=== PATIENT | female | born 1955 | race Caucasian/White ===

== ENCOUNTER 2016-08-19 16:33 | Outpatient (CLI) | payer OTHER ==
--- NOTE | 2016-08-21 07:07 | XRAY Report ---
CHEST, PA AND LATERAL: 08/19/2016 CLINICAL HISTORY: Shortness of breath for three months with productive cough. Patient is a smoker. COMPARISON: 06/10/2015 FINDINGS: Anterior spurring is noted in the thoracic spine, especially the [id number] thoracic spine. Normal cardiac size is noted. Thoracic aorta is normal. Mediastinum is not widened. Pulmonary parenchyma appears normal. No change is noted as compared to preceding exam dated 06/10/19 16. IMPRESSION: NORMAL EXAMINATION WITHOUT CHANGE NOTED COMPARED TO 06/10/2015. JOB #: [id number] EXT JOB #:[id number]
== END 2016-08-19 16:34 | disposition home or self-care (01) ==
LOC: DI 16:33
PROVIDERS: ATTEND Physician Assistant
DX: R06.02 Shortness of breath (principal); R05 Cough; R07.9 Chest pain, unspecified; F17.200 Nicotine dependence, unspecified, uncomplicated
CPT/HCPCS: 71020; 93005

== ENCOUNTER 2017-07-11 09:43 | Emergency (ER) | payer OTHER ==
[2017-07-11 09:49] VITALS: BP 181/87
--- NOTE | 2017-07-11 10:41 | XRAY Preliminary Report ---
Exam: XR CHEST 2 VIEW X-RAY IMPRESSION: No convincing acute cardiopulmonary abnormality. [facility] SITE ID: [id number]
--- NOTE | 2017-07-11 10:41 | XRAY Report ---
EXAM: CHEST RADIOGRAPHY EXAM DATE: 07/11/2017 10:18 AM. CLINICAL HISTORY: Shortness of breath, diff breathing. Productive cough. COMPARISON: 08/19/2016. TECHNIQUE: 2 views. FINDINGS: Lungs/Pleura: No focal pulmonary opacity. No significant pleural effusion or evidence of pneumothorax . Nonspecific mild prominence of the pulmonary interstitium. Mediastinum: Heart size is normal. Mildly tortuous aorta. Other: None. IMPRESSION: No convincing acute cardiopulmonary abnormality. [facility] Referring Provider Line: [phone] SITE ID: [id number]
--- NOTE | 2017-07-11 10:41 | ED Physician Documentation ---
PD HPI DYSPNEA - Stated complaint Stated Complaint: SOA - Chief complaint Chief Complaint: Resp - History obtained from History obtained from: Patient - History of Present Illness Timing - onset: How many days ago (several) Timing - onset during: Light activity Timing - duration: Days Timing - details: Gradual onset, Still present Inciting event(s): URI Worsened by: Exertion, Coughing Associated symptoms: Cough, Wheezing. No: Fever, Bilateral edema, Anxiety Similar symptoms before: Diagnosis (asthma) Recently seen: Not recently seen Review of Systems Constitutional: denies: Fever Nose: reports: Congestion. 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: 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 HEENT: Cataracts - Present Medications Home Medications: Ambulatory Orders Medication Instructions Recorded Confirmed Albuterol Sulfate [Proventil Hfa] 2 puffs IH QID PRN 03/03/13 10/12/13 Fluticasone Propionate [Flovent 50 mcg IH DAILY 03/03/13 10/12/13 Diskus] Fluticasone/Salmeterol [Advair 1 puffs IH DAILY 03/03/13 10/12/13 250-50 Diskus] Azithromycin [Zithromax] 250 mg PO DAILY #6 tablet 10/12/13 Prednisone 10 mg PO DAILY #26 tablet 10/12/13 Benzonatate [Tessalon] 100 mg PO TID PRN #25 capsule 07/11/17 Dexamethasone [Decadron] 4 mg PO DAILY #5 tablet 07/11/17 Doxycycline Monohydrate 100 mg PO BID #14 tablet 07/11/17 HYDROcod/ACETAM 5/325 [[place] 5/325] 1 tab PO Q6H PRN #15 tablet 07/11/17 - Allergies Allergies/Adverse Reactions: Allergies Allergy/AdvReac Type Severity Reaction Status Date / Time codeine Allergy Intermediate Itching Verified 10/12/13 09:01 - Social History Does the pt smoke?: Yes Smoking Status: Unknown if ever smoked Does the pt drink ETOH?: Yes Does the pt have substance abuse?: No - POLST Patient has POLST: No PD ED PE NORMAL - Vitals Vital signs reviewed: Yes - General General: Alert and oriented X 3, No acute distress, Well developed/nourished - HEENT HEENT: Ears normal, Pharynx benign - Neck Neck: Supple, no meningeal sign, No adenopathy - Cardiac Cardiac: RRR, No murmur - Respiratory Respiratory: No: Clear bilaterally (disffuse modeerate wheezing. No coarse sounds. ) - Abdomen Abdomen: Soft, Non tender - Extremities Extremities: No tenderness to palpate, No edema, No calf tenderness / cord - Neuro Neuro: Alert and oriented X 3, No motor deficit, Normal speech Results - Vitals Vitals: Oxygen O2 Source Room air - Rads (name of study) chest Radiology: Prelim report reviewed, EMP read contemporaneously (no infiltrates) PD MEDICAL DECISION MAKING - ED course Complexity details: reviewed results, re-evaluated patient, considered differential, d/w patient Departure - Departure Disposition: Home, Self Care Clinical Impression: Exacerbation of asthma Qualifiers: Asthma severity: moderate Asthma persistence: persistent Qualified Code(s): J45.41 - Moderate persistent asthma with (acute) exacerbation Acute bronchitis Qualifiers: Bronchitis organism: unspecified organism Qualified Code(s): J20.9 - Acute bronchitis, unspecified Condition: Stable Record reviewed to determine appropriate education?: Yes Instructions: ED Upper Resp Infec Abx Tx Prescriptions: Benzonatate [Tessalon] 100 mg PO TID PRN #25 capsule PRN Reason: Cough Dexamethasone [Decadron] 4 mg PO DAILY #5 tablet Doxycycline Monohydrate 100 mg PO BID #14 tablet HYDROcod/ACETAM 5/325 [[place] 5/325] 1 tab PO Q6H PRN #15 tablet PRN Reason: Pain Comments: Drink lots of fluids. Continue usual medications. Continue your DuoNeb inhalers 4 times a day for the next 7-10 days then as needed. Because of your asthma and now coughing and sputum production, we will treat as possible bacterial infection with doxycycline twice a day for a week. This may still be viral. Use Decadron daily for the next 5 days for the inflammation. Tessalon if needed for cough and add hydrocodone if needed for pain and cough. Recheck if not improving over the next few days and return sooner if worse. Forms: Activity restrictions Discharge Date/Time: 07/11/17 11:55
[2017-07-11] MEDS ORDERED: IPRATROPIUM/ALBUTEROL 3 ML NEB INH STA (10:51)
[2017-07-11] MEDS ORDERED: DEXAMETHASONE 10 MG/ML VIAL PO STA (10:51)
[2017-07-11] MEDS ORDERED: DOXYCYCLINE 100 MG TABLET PO STA (10:51)
[2017-07-11] MEDS ORDERED: HYDROcod/ACETAM 5/325 MG TABLET PO STA (10:51)
[2017-07-11] MEDS ORDERED: BENZONATATE 100 MG CAPSULE PO STA (10:51)
[2017-07-11] MEDS ORDERED: CHERRY SYRUP 10 ML UDC PO ONE (11:06)
== END 2017-07-11 11:55 | disposition home or self-care (01) ==
LOC: ED 09:43
DX: J45.41 Moderate persistent asthma with (acute) exacerbation (principal); J20.9 Acute bronchitis, unspecified; I10 Essential (primary) hypertension
CPT/HCPCS: 71046; 94640; 99283; A9270

== ENCOUNTER 2018-01-25 08:19 | Emergency (ER) | payer OTHER ==
--- NOTE | 2018-01-25 08:35 | ED Physician Documentation ---
PD HPI HEENT - Stated complaint Stated Complaint: SWOLLEN TONGUE - Chief complaint Chief Complaint: General - History obtained from History obtained from: Patient - History of Present Illness Timing - onset: How many minutes ago (20-30), Today Timing - duration: Minutes Location: Throat (swelling of left cheek, upper lip and side of tongue. Denies feeling of swelling posterior pharynx nor esophagus.) Worsens: No: Swalllowing Similar symptoms before: No diagnosis (has had this happen a few times, with it lasting few hours then better. Has not had trouble breathing in the past/ has not involved back of throat nor tracheal area.) Recently seen: Not recently seen Review of Systems Constitutional: denies: Fever, Chills Nose: denies: Rhinorrhea / runny nose, Congestion Throat: denies: Sore throat Cardiac: denies: Chest pain / pressure Respiratory: denies: Dyspnea, Cough PD PAST MEDICAL HISTORY - Past Medical History Cardiovascular: Hypertension Respiratory: None Endocrine/Autoimmune: None GI: None LIQUEFIER: None : None HEENT: None Psych: None Musculoskeletal: None Derm: None - Past Surgical History Past Surgical History: Yes /LIQUEFIER: 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 HEENT: Cataracts - Present Medications Home Medications: Ambulatory Orders Medication Instructions Recorded Confirmed Albuterol Sulfate [Proventil Hfa] 2 puffs IH QID PRN 03/03/13 10/12/13 Fluticasone Propionate [Flovent 50 mcg IH DAILY 03/03/13 10/12/13 Diskus] Fluticasone/Salmeterol [Advair 1 puffs IH DAILY 03/03/13 10/12/13 250-50 Diskus] Azithromycin [Zithromax] 250 mg PO DAILY #6 tablet 10/12/13 Prednisone 10 mg PO DAILY #26 tablet 10/12/13 Benzonatate [Tessalon] 100 mg PO TID PRN #25 capsule 07/11/17 Dexamethasone [Decadron] 4 mg PO DAILY #5 tablet 07/11/17 Doxycycline Monohydrate 100 mg PO BID #14 tablet 07/11/17 HYDROcod/ACETAM 5/325 [[place] 5/325] 1 tab PO Q6H PRN #15 tablet 07/11/17 Cetirizine [ZyrTEC] 10 mg PO DAILY #20 tablet 01/25/18 Dexamethasone [Decadron] 4 mg PO DAILY #5 tablet 10/30/18 - Allergies Allergies/Adverse Reactions: Allergies Allergy/AdvReac Type Severity Reaction Status Date / Time codeine Allergy Intermediate Itching Verified 01/25/18 08:26 - Social History Does the pt smoke?: Yes Smoking Status: Unknown if ever smoked Does the pt drink ETOH?: Yes Does the pt have substance abuse?: No - POLST Patient has POLST: No PD ED PE NORMAL - Vitals Vital signs reviewed: Yes - General General: Alert and oriented X 3, No acute distress, Well developed/nourished - HEENT HEENT: Other (left cheek and upper lip with some swelling without redness. Left side end of tongue with some mild swelling. No noted swelling of palatte, uvula, nor posterior pharynx. Normal voice and swellowing. Brathing unlabored. ) - Neck Neck: Supple, no meningeal sign, No adenopathy - Cardiac Cardiac: RRR, No murmur - Respiratory Respiratory: Clear bilaterally - Derm Derm: Normal color, Warm and dry - Neuro Neuro: Alert and oriented X 3, No motor deficit, Normal speech Results - Vitals Vitals: Oxygen O2 Source Room air - Labs Labs: Laboratory Tests 01/25/18 01/25/18 01/25/18 09:45 09:45 09:45 WBC 8.8 RBC 4.29 Hgb 15.6 Hct 44.6 MCV 103.9 H MCH 36.4 H MCHC 35.1 RDW 15.1 H Plt Count 213 MPV 8.9 Neut # (Auto) 6.7 H Lymph # (Auto) 1.3 L [place] # (Auto) 0.6 Eos # (Auto) 0.2 Baso # (Auto) 0.0 Absolute Nucleated RBC 0.01 Nucleated RBC % 0.1 Manual Slide Review Indicated WBC Morphology NORMAL APPEARANCE Platelet Estimate NORMAL (130-450,000) Platelet Morphology 1+ LARGE PLATELETS RBC Morph Micro Appear NORMAL APPEARANCE Sodium Potassium Chloride Carbon Dioxide Anion Gap BUN Creatinine Estimated GFR (MDRD) Glucose Calcium Total Bilirubin AST ALT Alkaline Phosphatase C-Reactive Protein < 1.0 Total Protein Albumin Globulin Albumin/Globulin Ratio Lipase TSH Func C1 Esterase Inhib >100 C1 Esterase Inhib Prot 32 Complement C4c 23 01/25/18 01/25/18 10:18 10:18 WBC RBC Hgb Hct MCV MCH MCHC RDW Plt Count MPV Neut # (Auto) Lymph # (Auto) [place] # (Auto) Eos # (Auto) Baso # (Auto) Absolute Nucleated RBC Nucleated RBC % Manual Slide Review WBC Morphology Platelet Estimate Platelet Morphology RBC Morph Micro Appear Sodium 136 Potassium 3.8 Chloride 103 Carbon Dioxide 23 Anion Gap 10.0 BUN 11 Creatinine 0.5 Estimated GFR (MDRD) 125 Glucose 104 H Calcium 8.8 Total Bilirubin 1.3 H AST 25 ALT 18 Alkaline Phosphatase 117 C-Reactive Protein Total Protein 7.1 Albumin 4.1 Globulin 3.0 Albumin/Globulin Ratio 1.4 Lipase 22 TSH 0.99 Func C1 Esterase Inhib C1 Esterase Inhib Prot Complement C4c PD MEDICAL DECISION MAKING - ED course Complexity details: re-evaluated patient (Tongue is less swollen as is the cheek. Her blood pressure still elevated but she states her normal is 130 systolic some reluctant to initiate any blood pressure medicines. She has an appointment this afternoon with her primary care. We should see how her blood pressure does over the next several days or a week to decide on treatment.), considered differential, d/w patient Departure - Departure Disposition: 01 Home, Self Care Clinical Impression: Elevated blood pressure reading Angioedema Qualifiers: Encounter type: initial encounter Qualified Code(s): T78.3XXA - Angioneurotic edema, initial encounter Condition: Stable Record reviewed to determine appropriate education?: Yes Instructions: ED Angioedema Follow-Up: Lissy Bailey PA [Primary Care Provider] - Prescriptions: Cetirizine [ZyrTEC] 10 mg PO DAILY #20 tablet Dexamethasone [Decadron] 4 mg PO DAILY #5 tablet Comments: Drink lots of fluids. Decadron steroid daily for 5 more days. Cetirizine antihistamine daily for 1-2 weeks. Add Benadryl if needed for itchiness or hives. There are blood tests results that will be available in a couple of days to look at potential causes for the swelling episodes that you have been having. Have your primary care follow-up on those. Discharge Date/Time: 01/25/18 10:39
[2018-01-25] MEDS ORDERED: DEXAMETHASONE 10 MG/ML VIAL PO STA (08:54)
[2018-01-25] MEDS ORDERED: CETIRIZINE 10 MG TABLET PO STA (08:54)
[2018-01-25] MEDS ORDERED: diphenhydrAMINE 25 MG CAPSULE PO STA (08:54)
[2018-01-25] MEDS ORDERED: CHERRY SYRUP 10 ML UDC PO ONE (09:01)
[2018-01-25 10:26] LABS: BASOPHILS % (AUTO) 0.5 %; EOSINOPHILS # (AUTO) 0.2 10^3/uL (0.0-0.7); EOSINOPHILS % (AUTO) 2.3 %; HGB - HEMOGLOBIN 15.6 g/dL (12.0-16.0); LYMPHOCYTES # (AUTO) 1.3 10^3/uL (1.5-3.5); LYMPHOCYTES % (AUTO) 14.8 %; MEAN CORPUSCULAR HEMOGLOBIN 36.4 pg (27.0-31.0); MEAN CORPUSCULAR HGB CONC 35.1 g/dL (32.0-36.0); MEAN CORPUSCULAR VOLUME 103.9 fL (81.0-99.0); MEAN PLATELET VOLUME 8.9 fL (7.9-10.8); MONOCYTES # (AUTO) 0.6 10^3/uL (0.0-1.0); MONOCYTES % (AUTO) 6.9 %; NEUTROPHILS # (AUTO) 6.7 10^3/uL (1.5-6.6); NEUTROPHILS % (AUTO) 75.5 %; PLT - PLATELET COUNT 213 10^3/uL (130-450); RED BLOOD COUNT 4.29 10^6/uL (4.20-5.40); RED CELL DISTRIBUTION WIDTH 15.1 % (12.0-15.0); WHITE BLOOD COUNT 8.8 x10^3/uL (4.8-10.8)
[2018-01-25 10:39] LABS: ALBUMIN 4.1 g/dL (3.2-5.5); ALBUMIN/GLOBULIN RATIO 1.4 (1.0-2.2); BILIRUBIN,TOTAL 1.3 mg/dL (0.2-1.0); CALCIUM 8.8 mg/dL (8.5-10.3); CREATININE 0.5 mg/dL (0.4-1.0); TOTAL PROTEIN 7.1 g/dL (6.7-8.2)
[2018-01-25 10:43] VITALS: BP 228/122
[2018-01-25 11:01] LABS: PLATELET MORPHOLOGY 1+ LARGE PLATELETS (NORMAL)
[2018-01-25 11:02] LABS: PLATELET ESTIMATE, MANUAL NORMAL (130-450,000) (NORMAL); RBC MORPHOLOGY (MULTIPLE) NORMAL APPEARANCE (NORMAL)
[2018-01-27 12:22] LABS: COMPLEMENT COMPONENT C4C 23 mg/dL (15-57)
== END 2018-01-25 10:39 | disposition home or self-care (01) ==
LOC: ED 08:19
DX: T78.3XXA Angioneurotic edema, initial encounter (principal); I10 Essential (primary) hypertension
CPT/HCPCS: 36415; 80053; 83690; 84443; 85025; 86140; 86160; 86161; 99283; A9270

== ENCOUNTER 2018-02-14 10:15 | Inpatient (IN) | payer OTHER ==
[2018-02-14] MEDS ORDERED: LIDOCAINE OINTMENT 5% 35.44 GM TUBE TOP ONE (10:16)
[2018-02-14] MEDS ORDERED: diphenhydrAMINE INJ 50 MG/ML VIAL ONE (10:23)
--- NOTE | 2018-02-14 10:25 | ED Physician Documentation ---
PD MEG HEENT - Stated complaint Stated Complaint: FACIAL SWELLING/SOA - History obtained from History obtained from: Patient - History of Present Illness Timing - onset: Today Timing - duration: Hours Timing - details: Abrupt onset, Still present Location: Throat, Mouth, Other (Had an abrupt onset of swelling of the tongue lips and submandibular area. She feels that her throat is swollen as well and she is having significant difficulty swallowing to where she is spitting out or actually just dribbling out her saliva and is having to focus on breathing. She had had an episode of just lip swelling a few weeks ago that resolved after a day. She denies any URI symptoms the last few days.) Worsens: Swalllowing (she is unable to swallow) Associated symptoms: No: Fever, Congestion, Rhinorrhea Similar symptoms before: Diagnosis (unknown lip and tongue swelling few weeks ago. She denied TELMA meds and was not on her med list at the time. Rx with steroids and was okay after a day.) Recently seen: Emergency Dept (Seen several weeks ago for swelling of her lip. At the time she denied a blood pressure medicine and her medication list did not include an TELMA inhibitor. Her medications are with her today and do include lisinopril. At the prior visit she was treated with steroids and antihistamines and improved over a day. 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 : None HEENT: None Psych: None Musculoskeletal: None Derm: None - Past Surgical History Past Surgical History: Yes /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: 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 HEENT: Cataracts - Present Medications Home Medications: Ambulatory Orders Medication Instructions Recorded Confirmed Ibuprofen 600 mg PO 02/14/18 Lisinopril/Hydrochlorothiazide 1 each PO DAILY 02/14/18 02/14/18 [Lisinopril-Hctz 20-12.5 mg Tab] Methocarbamol [Robaxin] 500 mg PO ONCE 02/14/18 02/14/18 - Allergies Allergies/Adverse Reactions: Allergies Allergy/AdvReac Type Severity Reaction Status Date / Time codeine Allergy Intermediate Itching Verified 01/25/18 08:26 - Social History Does the pt smoke?: Yes Smoking Status: Unknown if ever smoked Does the pt drink ETOH?: Yes Does the pt have substance abuse?: No - Family History Family history: reports: Other (She states her sister had an episode like this in the recent past. Neither of them had episodes when they were younger.) - POLST Patient has POLST: No PD ED PE NORMAL - Vitals Vital signs reviewed: Yes - General General: Alert and oriented X 3, Well developed/nourished, Other (She appears markedly distressed and is focused on breathing. Her oxygen saturation is adequate. There are no abdominal nor intercostal retractions. She) - HEENT HEENT: Other (There is severe swelling of the tongue where it is protruding out of her mouth. The submandibular area is markedly swollen both visibly intraorally and also palpable below the mandible on neck exam.) - Neck Neck: Supple, no meningeal sign, No adenopathy - Cardiac Cardiac: No murmur. No: RRR (tachycardic) - Respiratory Respiratory: Clear bilaterally - Abdomen Abdomen: Soft, Non tender - Derm Derm: Normal color, Warm and dry - Extremities Extremities: Normal ROM s pain, No edema, No calf tenderness / cord - Neuro Neuro: Alert and oriented X 3. No: Normal speech Results - Vitals Vitals: Vital Signs - 24 hr 02/14/18 02/14/18 02/14/18 10:25 10:33 10:48 Temperature Heart Rate 142 H 136 H 121 H Respiratory 19 16 20 Rate Blood Pressure 187/107 H 196/126 H 156/97 H O2 Saturation 98 95 94 02/14/18 02/14/18 02/14/18 11:06 11:10 11:22 Temperature Heart Rate 121 H 127 H 137 H Respiratory 20 16 18 Rate Blood Pressure 170/123 H 167/76 H 136/78 H O2 Saturation 97 98 98 02/14/18 02/14/18 02/14/18 11:30 11:40 11:48 Temperature 36.9 C Heart Rate 125 H 109 H 109 H Respiratory 16 14 Rate Blood Pressure 130/82 H 84/60 L 87/63 L O2 Saturation 94 98 02/14/18 02/14/18 11:54 12:04 Temperature 36.9 C Heart Rate 106 H 103 H Respiratory 12 14 Rate Blood Pressure 98/63 116/82 H O2 Saturation Oxygen O2 Source Mechanical ventilator - Labs Labs: Laboratory Tests 02/14/18 10:40 Blood Type A POSITIVE - Rads (name of study) chest Radiology: Prelim report reviewed, EMP read contemporaneously (correct ETT position) PD MEDICAL DECISION MAKING - ED course Complexity details: re-evaluated patient (She is starting to have some slight lessening of the swelling of the tongue. However the submandibular area still markedly swollen. She is intubated with repeated medications for sedation.), considered differential, d/w patient, d/w senior erp consultant (Consult anesthesiology for fiberoptic placement of an endotracheal tube due to considerable concerns for airway protection and adequacy.), other (Discussed with hospitalist. He did asked that I talk with a specialist. I talked with on-call ENT at [facility] who is that the current treatments are appropriate for the TELMA and used angioedema. The prior complement factor tests done exclude the hereditary version. He did not see reason for transfer per se. I talked back with Dr. Shea hospitalist here who agreed with admitting the patient.) - Critical Care Time(min): 40 Time Includes: Direct patient care, Reassess patient, Coordinate care, Medical consult Data interpretation: Labs, CXR Departure - Departure Disposition: 66 [facility] DC/Xfer Clinical Impression: Acute respiratory distress TELMA inhibitor-aggravated angioedema Qualifiers: Encounter type: initial encounter Qualified Code(s): T78.3XXA - Angioneurotic edema, initial encounter Condition: Stable Record reviewed to determine appropriate education?: Yes
[2018-02-14] MEDS ORDERED: SODIUM CHLORIDE 0.9% 1,000 ML IV ONE ×2 (10:27→12:10)
[2018-02-14] MEDS ORDERED: DEXAMETHASONE 10 MG/ML VIAL IVP STA ×2 (10:27→12:52)
[2018-02-14] MEDS ORDERED: RACEPINEPHRINE 2.25% NEB INH STA (10:27)
[2018-02-14] MEDS ORDERED: diphenhydrAMINE INJ 50 MG/ML VIAL IVP STA (10:27)
[2018-02-14] MEDS ORDERED: SODIUM CHLORIDE INHALATION 3 ML NEB ONE (10:41)
[2018-02-14] MEDS ORDERED: MIDAZOLAM 2 MG/2 ML VIAL IVP STA ×4 (10:52→11:59)
[2018-02-14] MEDS ORDERED: OXYMETAZOLINE NASAL SPRAY NAS STA (10:53)
[2018-02-14] MEDS ORDERED: PROPOFOL 200 MG/20 ML VIAL IVP ONE (10:55)
[2018-02-14] MEDS ORDERED: MIDAZOLAM 2 MG/2 ML VIAL ONE ×4 (10:55→12:29)
[2018-02-14] MEDS ORDERED: PROPOFOL 1000 MG/100 ML 100 ML IV ONE (10:55)
[2018-02-14] MEDS ORDERED: ROCURONIUM 50 MG/5 ML VIAL IVP ONE (10:56)
[2018-02-14] MEDS: PROPOFOL 1000 MG/100 ML 100 ML IV STA ×2 (11:28→21:23)
[2018-02-14] MEDS ORDERED: PROPOFOL 200 MG/20 ML VIAL IVP STA ×2 (11:30→11:38)
[2018-02-14] MEDS ORDERED: PROPOFOL 1000 MG/100 ML 100 ML IV STA (11:48)
[2018-02-14] MEDS ORDERED: ONDANSETRON 4 MG/2 ML VIAL IVP PRN (12:12)
[2018-02-14] MEDS ORDERED: PROCHLORPERAZINE 10 MG/2 ML VIAL IVP PRN (12:12)
--- NOTE | 2018-02-14 12:14 | ANESTHESIA PROCEDURE NOTE ---
Anesthesia Intubation Template - Intubation Blade: positive: Other Tube: Size-enter number (6.5), Cuffed Route: Nasal Placement Confirmation: End tidal CO2, Bilateral breath sounds (Called to ER by Dr. Caldwell for emergency intubation on this awake, alert female under some distress. Sats 92%, patient unable to speak or control secretions. Afrin nasal spray down right nostril 1cc atomized and Lidocaine 4% 2cc. Lidocaine 4% nebulizer 2cc. Glycopyrolate 0.2 mg and Versed 0.5 mg given. Awake fiberoptic intubation preceeded, unable to visualize recognizable anatomy until trachial rings. 6.5 ETT treaded overt scope , ETCO2 confirmed and bilateral breath sounds. Patient sedated with propofol and additional versed, tube secured by RT and to ventilator by RT.)
--- NOTE | 2018-02-14 12:21 | HISTORY & PHYSICAL EXAMINATION ---
Chief Complaint - Chief Complaint Chief Complaint: Swelling of lips and tongue History of Present Illness - Admitted From Admitted From:: Emergency Department - History Obtained From Records Reviewed: Yes History obtained from: Patients friend Tonya and medical records Exam Limitations: Patient intubated and sedated unable to provide history - History of Present Illness HPI Comment/Other: Patient is a 62-year-old female with a past medical history significant for hypertension, asthma and osteoarthritis who presents to the emergency department with a chief complaint of tongue and lip swelling. The patient had a similar presentation to the emergency department on 01/25/2018 with some mild swelling of her lips and her tongue. She was thought to have angioedema at that time and was treated with Decadron and Zyrtec. The patient told the emergency room physician at that time that she was not on lisinopril. The emergency room physician did do testing for complement factor C4 C, C1 esterase inhibitor protein and functional C1 esterase inhibitor. These tests were negative. The patient returned again to the emergency department today having driven herself to the emergency department with similar complaint. She stated that she began having lip and tongue swelling earlier in the day and it has progressed rapidly to a point where she had to come into the emergency department. The patient was unable to speak and was beginning to drool. Patient had to communicate by writing things on paper. The patient was unable to provide history as by the time I saw the patient she had already been intubated. According to what she told the emergency department physician she was not having any other complaints prior to this swelling. The patient was having drooling and began having difficulty with her breathing. Given the severity of her angioedema the patient was intubated in the emergency department for airway protection. Looking through her medication bottles the patient was on lisinopril/hydrochlorothiazide which we were not aware of on her previous presentation. Given her normal blood testing from previous presentation and the fact that she is on lisinopril this was thought to be lisinopril induced angioedema. The patient was given FFP, Benadryl, Decadron and racemic epi in the emergency department. The patient was admitted to the intensive care unit on a ventilator with propofol drip for se dation. Patient was unable to provide a review of systems secondary to being intubated and sedated. History - Past Medical History Cardiovascular: reports: Hypertension Respiratory: reports: Asthma Endocrine/Autoimmune: reports: None GI: reports: None GATE MANAGER: reports: None : reports: None HEENT: reports: None Psych: reports: None Musculoskeletal: reports: Osteoarthritis Derm: reports: None MRSA Hx?: No - Past Surgical History /GATE MANAGER: reports: 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 HEENT: reports: Cataracts - Family & Social History Family History: Mother: (CAD), Father: , CAD, Sister: Alive and Well (Sister has hereditary angioedema) Living arrangement: At home Living Situation: Alone Social History Notes: The patient is originally from [place] and is but from her . Her still lives in [place]. She has 1 son who is grown. She is lives in [facility] for more than 20 years. She works at [employer] in the [employer]. She does smoke cigarettes, she drinks alcohol but does not use any illicit drugs. - POLST Patient has POLST: No POLST Status: Full Code Meds/Allgy - Home Medications Home Medications: Ambulatory Orders Medication Instructions Recorded Confirmed Ibuprofen 600 mg PO 02/14/18 Lisinopril/Hydrochlorothiazide 1 each PO DAILY 02/14/18 02/14/18 [Lisinopril-Hctz 20-12.5 mg Tab] Methocarbamol [Robaxin] 500 mg PO ONCE 02/14/18 02/14/18 - Allergies Allergies/Adverse Reactions: Allergies Allergy/AdvReac Type Severity Reaction Status Date / Time codeine Allergy Intermediate Itching Verified 01/25/18 08:26 Review of Systems - Other Findings Other Findings: Patient intubated and sedated unable to provide a conference of review of systems Prior Level of Functionality: Patient has completely independent with all her activities of daily living. Exam - Vital Signs Reviewed Vital Signs: Yes Vital Signs: Vital Signs x48h Temp Pulse Resp BP Pulse Ox 02/14/18 12:18 97 12 150/72 H 99 02/14/18 12:04 36.9 C 103 H 14 116/82 H 02/14/18 11:54 106 H 12 98/63 02/14/18 11:48 36.9 C 109 H 14 87/63 L 98 02/14/18 11:40 119 H 84/60 L 02/14/18 11:30 125 H 16 130/82 H 94 02/14/18 11:22 137 H 18 136/78 H 98 02/14/18 11:10 127 H 16 167/76 H 98 02/14/18 11:06 121 H 20 170/123 H 97 02/14/18 10:48 121 H 20 156/97 H 94 02/14/18 10:33 136 H 16 196/126 H 95 02/14/18 10:25 142 H 19 187/107 H 98 - Physical Exam General Appearance: positive: Other (Patient is intubated and sedated. Patient has an enlarged protruding tongue and swollen lips.) Eyes Bilateral: positive: Normal inspection, PERRL, EOMI, No lid inflammation, Conjunctivae nml, No scleral icterus ENT: positive: Dry mucous membranes, Other (The patient has a swollen protruding tongue with swollen lips and is currently intubated and sedated.). negative: Purulent nasal drainage, Pharyngeal erythema, Oral lesions Neck: positive: Nml inspection, Thyroid nml, No JVD, Trachea midline. negative: Thyromegaly, Lymphadenopathy (R), Lymphadenopathy (L), Stiff neck, Carotid bruit, Tracheal deviation Respiratory: positive: Chest non-tender, No respiratory distress, Breath sounds nml. negative: Wheezes, Rales, Rhonchi Cardiovascular: positive: Regular rate & rhythm, No murmur, No gallop Peripheral Pulses: positive: 2+ Abdomen: positive: Non-tender, No organomegaly, Nml bowel sounds, No distention. negative: Guarding, Rebound, Hepatomegaly Back: positive: Nml inspection Skin: positive: Color nml, No rash, Warm, Dry. negative: Cyanosis, Diaphoresis, Pallor Extremities: positive: Non-tender, Full ROM, Nml appearance, No pedal edema Neurologic/Psychiatric: positive: Other (Patient is intubated and sedated we are unable to get a full neurologic assessment at this time.) Conclusion/Plan - Problem List (1) Angioedema Conclusion/Plan: Patient's angioedema appears to be secondary to lisinopril. The patient has normal C1 esterase inhibitor and complement C4 levels therefore does not appear to be hereditary angioedema. The patient is on lisinopril for hypertension. The patient did have presentation 2 weeks ago with similar symptoms which seem to improve with steroids and treatment in the emergency department. At that time it was not known that the patient was on lisinopril therefore she was not told to stop it. Patient was intubated in the emergency department for airway protection. Plan: Continue airway protection with mechanical ventilation Continue sedation while patient is intubated 2 units FFP IV Benadryl 25 mg every 6 IV Solu-Medrol 40 mg every 6 hours Pepcid 20 mg twice daily IV fluids Discontinue lisinopril Once swelling is subsided and patient has better airway we will extubate and monitor. Qualifiers: Encounter type: initial encounter Qualified Code(s): T78.3XXA - Angioneurotic edema, initial encounter (2) Hypertension Conclusion/Plan: The patient has a history of hypertension and was hypertensive on presentation to the emergency department with tachycardia. This appears likely secondary to distress as the patient's blood pressure and heart rate did improve once she was intubated and sedated. For now we will hold antihypertensive medications and patient will be asked to discontinue her lisinopril due to the angioedema. We will monitor the patient's blood pressure if it does become increasingly elevated we will need to start her on IV antihypertensive medications. Qualifiers: Hypertension type: essential hypertension Qualified Code(s): I10 - Essential (primary) hypertension (3) Leukocytosis Conclusion/Plan: Patient appears to have a reactive leukocytosis likely secondary to the stress of the angioedema and the fact the patient received IV steroids in the emergency department. The labs were drawn after the patient received IV steroids. We will continue to monitor the patient's CBC daily Qualifiers: Leukocytosis type: unspecified Qualified Code(s): D72.829 - Elevated white blood cell count, unspecified (4) Hyperglycemia Conclusion/Plan: The patient is hyperglycemic on lab work which was taken after the patient received IV steroids in the emergency department. The patient's glucose is elevated at 140. We will check a hemoglobin A1c in the morning. This is however likely secondary to steroids. - Lab Results Lab results reviewed: Yes Fish Bones: 02/14/18 15:18 02/14/18 15:18 Other Lab Results: Laboratory Results WBC 17.0 x10^3/uL (4.8-10.8) H 02/14/18 15:18 RBC 4.19 10^6/uL (4.20-5.40) L 02/14/18 15:18 Hgb 15.1 g/dL (12.0-16.0) 02/14/18 15:18 Hct 44.1 % (37.0-47.0) 02/14/18 15:18 MCV 105.3 fL (81.0-99.0) H 02/14/18 15:18 MCH 36.1 pg (27.0-31.0) H 02/14/18 15:18 MCHC 34.3 g/dL (32.0-36.0) 02/14/18 15:18 RDW 14.5 % (12.0-15.0) 02/14/18 15:18 Plt Count 220 10^3/uL (130-450) 02/14/18 15:18 MPV 7.6 fL (7.9-10.8) L 02/14/18 15:18 Neut # (Auto) 16.3 10^3/uL (1.5-6.6) H 02/14/18 15:18 Lymph # (Auto) 0.5 10^3/uL (1.5-3.5) L 02/14/18 15:18 Edmunds # (Auto) 0.2 10^3/uL (0.0-1.0) 02/14/18 15:18 Eos # (Auto) 0.0 10^3/uL (0.0-0.7) 02/14/18 15:18 Baso # (Auto) 0.0 10^3/uL (0.0-0.1) 02/14/18 15:18 Absolute Nucleated RBC 0.01 x10^3/uL 02/14/18 15:18 Nucleated RBC % 0.1 /100WBC 02/14/18 15:18 Bld Gas Analysis Time 1254 02/14/18 12:48 Sample Site LEFT RADIAL 02/14/18 12:48 ABG pH 7.32 (7.35-7.45) L 02/14/18 12:48 ABG pCO2 42 mmHg (34-45) 02/14/18 12:48 ABG pO2 76 mmHg (80-100) L 02/14/18 12:48 ABG HCO3 21.2 mmol/L (22.0-26.0) L 02/14/18 12:48 ABG Total CO2 22.5 MMOL/L (21.0-29.0) 02/14/18 12:48 ABG O2 Saturation 95 % (94-98) 02/14/18 12:48 ABG Base Excess -4.8 mmol/L (-2.0-3.0) L 02/14/18 12:48 Patricio Test POSITIVE 02/14/18 12:48 VBG pH 7.297 (7.31-7.41) L 02/14/18 15:18 Ionized Calcium 1.03 mmol/L (1.15-1.33) L 02/14/18 15:18 Sodium 135 mmol/L (135-145) 02/14/18 15:18 Potassium 4.0 mmol/L (3.5-5.0) 02/14/18 15:18 Chloride 104 mmol/L (101-111) 02/14/18 15:18 Carbon Dioxide 20 mmol/L (21-32) L 02/14/18 15:18 Anion Gap 11.0 (6-13) 02/14/18 15:18 BUN 13 mg/dL (6-20) 02/14/18 15:18 Creatinine 0.6 mg/dL (0.4-1.0) 02/14/18 15:18 Estimated GFR (MDRD) 101 (>89) 02/14/18 15:18 Glucose 140 mg/dL (70-100) H 02/14/18 15:18 Calcium 8.0 mg/dL (8.5-10.3) L 02/14/18 15:18 Ionized Calcium YES 02/14/18 15:18 Phosphorus 3.1 mg/dL (2.5-4.6) 02/14/18 15:18 Magnesium 1.8 mg/dL (1.7-2.8) 02/14/18 15:18 Total Bilirubin 0.7 mg/dL (0.2-1.0) 02/14/18 15:18 AST 21 IU/L (10-42) 02/14/18 15:18 ALT 17 IU/L (10-60) 02/14/18 15:18 Alkaline Phosphatase 83 IU/L (42-121) 02/14/18 15:18 Total Protein 6.5 g/dL (6.7-8.2) L 02/14/18 15:18 Albumin 3.6 g/dL (3.2-5.5) 02/14/18 15:18 Globulin 2.9 g/dL (2.1-4.2) 02/14/18 15:18 Albumin/Globulin Ratio 1.2 (1.0-2.2) 02/14/18 15:18 Blood Type A POSITIVE 02/14/18 10:40 Blood Type Recheck A POSITIVE 02/14/18 15:18 - Diagnostic Imaging Results Diagnostic Imaging Results: positive: Final report reviewed Diagnostic Imaging Results Comments: Chest x-ray Impression: Endotracheal tube in good position. Suboptimal inspiratory effort. No pneumonia, CHF or other acute process noted. Chest x-ray Impression: Enteric tube courses with its tip below the diaphragm injecting over the stomach bubble in the left upper quadrant. The sidehole of the enteric tube is approximately at the GE junction, the tube could be advanced. Core Measures - Anticipated LOS I expect patient to be DC'd or transferred within 96 hours.: Yes - DVT/VTE - Prophylaxis VTE/DVT Prophylaxis med ordered at admit?: Yes
[2018-02-14] MEDS ORDERED: LORazepam 2 MG/ML VIAL ONE (12:30)
[2018-02-14] MEDS ORDERED: LORazepam 2 MG/ML VIAL IVP STA ×2 (12:32→12:46)
--- NOTE | 2018-02-14 12:38 | XRAY Report ---
Reason: intubated Procedure Date: 02/14/2018 Accession Number: [id number] / [id number] Procedure: XR - Chest 1 View X-Ray CPT Code: 90686 FULL RESULT: EXAM: CHEST RADIOGRAPHY, PORTABLE 1 VIEW EXAM DATE: 02/14/2018 12:14 PM. CLINICAL HISTORY: 62-year-old female with respiratory distress, intubated. COMPARISON: CHEST 2 VIEW 07/11/2017 10:09 AM. TECHNIQUE: 1203 hour AP upright portable view. FINDINGS: Lungs/Pleura: No focal opacities evident. No pleural effusion. No pneumothorax. Suboptimal inspiratory effort. Mediastinum: Within exam limitations, the cardiomediastinal contour is normal. No adenopathy or pulmonary vascular congestion. Other: Trachea is midline. Endotracheal tube in good position with the distal tip 4.5 cm above the yolanda. Osseous structures unremarkable for age. IMPRESSION: Endotracheal tube in good position. Suboptimal inspiratory effort. No pneumonia, CHF or other acute process noted. [facility]
[2018-02-14] MEDS ORDERED: GLYCOPYRROLATE 1 MG/5 ML VIAL ONE (12:47)
[2018-02-14 12:58] LABS: ABG BASE EXCESS -4.8 mmol/L (-2.0-3.0); ABG HCO3 21.2 mmol/L (22.0-26.0); ABG PCO2 42 mmHg (34-45); ABG PH 7.32 (7.35-7.45); ABG PO2 76 mmHg (80-100); ABG TCO2 22.5 MMOL/L (21.0-29.0)
[2018-02-14 12:59] LABS: ABG OXYGEN SATURATION 95 % (94-98); ALLEN TEST POSITIVE
[2018-02-14] MEDS ORDERED: DEXTROSE 5%-0.9% NACL 1,000 ML IV SCH (13:00)
[2018-02-14] MEDS ORDERED: methylPREDNISolone SUCCINATE 40 MG/ML VIAL IVP SCH (13:00)
[2018-02-14] MEDS ORDERED: MIDAZOLAM 50 MG/10 ML VIAL IVP PRN (13:25)
[2018-02-14] MEDS ORDERED: MIDAZOLAM 2 MG/2 ML VIAL IVP PRN (13:32)
[2018-02-14] MEDS: fentaNYL 100 MCG/2 ML VIAL IVP PRN (13:47)
[2018-02-14] MEDS: PROPOFOL 1000 MG/100 ML 100 ML IV SCH ×3 (14:09→22:28)
[2018-02-14] MEDS: SODIUM CHLORIDE 0.9% 1,000 ML IV SCH ×2 (15:14→20:52)
[2018-02-14] MEDS: diphenhydrAMINE INJ 50 MG/ML VIAL IVP SCH ×2 (15:16→20:51)
[2018-02-14 15:25] LABS: BASOPHILS % (AUTO) 0.1 %; EOSINOPHILS % (AUTO) 0.1 %; HGB - HEMOGLOBIN 15.1 g/dL (12.0-16.0); LYMPHOCYTES # (AUTO) 0.5 10^3/uL (1.5-3.5); MEAN CORPUSCULAR HEMOGLOBIN 36.1 pg (27.0-31.0); MEAN CORPUSCULAR HGB CONC 34.3 g/dL (32.0-36.0); MEAN CORPUSCULAR VOLUME 105.3 fL (81.0-99.0); MEAN PLATELET VOLUME 7.6 fL (7.9-10.8); MONOCYTES # (AUTO) 0.2 10^3/uL (0.0-1.0); NEUTROPHILS # (AUTO) 16.3 10^3/uL (1.5-6.6); NEUTROPHILS % (AUTO) 95.8 %; PLT - PLATELET COUNT 220 10^3/uL (130-450); RED BLOOD COUNT 4.19 10^6/uL (4.20-5.40); RED CELL DISTRIBUTION WIDTH 14.5 % (12.0-15.0)
[2018-02-14 15:37] LABS: ALBUMIN 3.6 g/dL (3.2-5.5); ALBUMIN/GLOBULIN RATIO 1.2 (1.0-2.2); ALKALINE PHOSPHATASE 83 IU/L (42-121); ALT ALANINE AMINOTRANSFERASE 17 IU/L (10-60); AST ASPARTATE AMINOTRANSFERASE 21 IU/L (10-42); BILIRUBIN,TOTAL 0.7 mg/dL (0.2-1.0); BUN - BLOOD UREA NITROGEN 13 mg/dL (6-20); CARBON DIOXIDE - CO2 20 mmol/L (21-32); CHLORIDE 104 mmol/L (101-111); CREATININE 0.6 mg/dL (0.4-1.0); GFR - MDRD 101 (>89); GLUCOSE 140 mg/dL (70-100); SODIUM 135 mmol/L (135-145); TOTAL PROTEIN 6.5 g/dL (6.7-8.2)
--- NOTE | 2018-02-14 15:46 | XRAY Report ---
Reason: Confirm NGT placement Procedure Date: 02/14/2018 Accession Number: [id number] / [id number] Procedure: XR - Chest 1 View X-Ray CPT Code: 08060 FULL RESULT: EXAM: CHEST RADIOGRAPHY EXAM DATE: 02/14/2018 03:31 PM. CLINICAL HISTORY: Confirm NGT placement. COMPARISON: Chest 1 view 02/14/2018 12:03 PM. TECHNIQUE: 1 view. FINDINGS: Lungs/Pleura: No focal opacities evident. No pleural effusion. No pneumothorax. Mediastinum: Within exam limitations, the cardiomediastinal contour is normal. Other: Enteric tube courses with its tip below the diaphragm projecting over the stomach bubble in the left upper quadrant. The sidehole of the enteric tube is approximately at the GE junction, the tube could be advanced. IMPRESSION: Nasogastric tube placement as described. RAD[facility]
[2018-02-14 16:01] LABS: VBG PH 7.297 (7.31-7.41)
[2018-02-14 16:05] LABS: MAGNESIUM 1.8 mg/dL (1.7-2.8); PHOSPHORUS 3.1 mg/dL (2.5-4.6)
[2018-02-14] MEDS ORDERED: CALCIUM GLUCONATE 1,000 MG in SODIUM CHLORIDE 0.9% 50 ML IV ONE (17:02)
[2018-02-14] MEDS: SODIUM CHLORIDE FLUSH 0.9% 10 ML SYRINGE IVP SCH (18:00)
[2018-02-14] MEDS: CHLORHEXIDINE GLUCONATE 15 ML UDC PO SCH (20:51)
[2018-02-14] MEDS: FAMOTIDINE 20 MG/50 ML 50 ML IV SCH (20:51)
[2018-02-14] MEDS: methylPREDNISolone SUCCINATE 40 MG/ML VIAL IVP SCH (20:58)
[2018-02-14] MEDS: hydrALAZINE INJ 20 MG/ML VIAL IVP SCH (23:39)
[2018-02-15] MEDS: SODIUM CHLORIDE FLUSH 0.9% 10 ML SYRINGE IVP SCH ×3 (00:20→16:04)
[2018-02-15] MEDS: MIDAZOLAM 2 MG/2 ML VIAL IVP PRN ×6 (00:23→18:33)
[2018-02-15] MEDS: PROPOFOL 1000 MG/100 ML 100 ML IV SCH ×6 (02:25→22:22)
[2018-02-15] MEDS: methylPREDNISolone SUCCINATE 40 MG/ML VIAL IVP SCH ×4 (03:20→20:40)
[2018-02-15] MEDS: diphenhydrAMINE INJ 50 MG/ML VIAL IVP SCH ×4 (03:21→20:40)
[2018-02-15] MEDS: SODIUM CHLORIDE 0.9% 1,000 ML IV SCH ×3 (04:46→20:10)
[2018-02-15 05:29] LABS: BASOPHILS % (AUTO) 0.1 %; HGB - HEMOGLOBIN 14.4 g/dL (12.0-16.0); LYMPHOCYTES # (AUTO) 0.5 10^3/uL (1.5-3.5); LYMPHOCYTES % (AUTO) 4.9 %; MEAN CORPUSCULAR VOLUME 105.7 fL (81.0-99.0); MONOCYTES # (AUTO) 0.2 10^3/uL (0.0-1.0); MONOCYTES % (AUTO) 2.2 %; NEUTROPHILS # (AUTO) 8.5 10^3/uL (1.5-6.6); NEUTROPHILS % (AUTO) 92.8 %; PLT - PLATELET COUNT 204 10^3/uL (130-450); RED BLOOD COUNT 3.99 10^6/uL (4.20-5.40); RED CELL DISTRIBUTION WIDTH 14.1 % (12.0-15.0); WHITE BLOOD COUNT 9.2 x10^3/uL (4.8-10.8)
[2018-02-15 05:35] LABS: INR 0.9 (0.8-1.2); PT - PROTHROMBIN TIME 10.1 secs (9.9-12.6)
[2018-02-15 05:49] LABS: HB2 TOTAL 15.1 g/dL; HEMOGLOBIN A1C 0.47 g/dL
[2018-02-15] MEDS: hydrALAZINE INJ 20 MG/ML VIAL IVP SCH ×4 (06:08→22:56)
[2018-02-15 07:37] LABS: ALBUMIN 3.4 g/dL (3.2-5.5); ALBUMIN/GLOBULIN RATIO 1.5 (1.0-2.2); BILIRUBIN,TOTAL 0.6 mg/dL (0.2-1.0); CALCIUM 7.9 mg/dL (8.5-10.3); CREATININE 0.6 mg/dL (0.4-1.0); MAGNESIUM 1.7 mg/dL (1.7-2.8); PHOSPHORUS 3.9 mg/dL (2.5-4.6); TOTAL PROTEIN 5.6 g/dL (6.7-8.2)
[2018-02-15] MEDS: CHLORHEXIDINE GLUCONATE 15 ML UDC PO SCH ×2 (08:24→20:40)
[2018-02-15] MEDS: ENOXAPARIN 40 MG/0.4 ML SYRINGE SUBQ SCH (08:25)
[2018-02-15] MEDS: FAMOTIDINE 20 MG/50 ML 50 ML IV SCH ×2 (08:25→20:40)
[2018-02-15 09:10] LABS: VBG PH 7.375 (7.31-7.41)
[2018-02-15] MEDS ORDERED: CALCIUM GLUCONATE 1,000 MG in SODIUM CHLORIDE 0.9% 50 ML IV ONE (10:15)
[2018-02-15] MEDS: SODIUM CHLORIDE FLUSH 0.9% 10 ML SYRINGE IVP PRN ×3 (12:29→18:14)
[2018-02-15] MEDS ORDERED: SODIUM CHLORIDE INHALATION 3 ML NEB ONE (12:57)
--- NOTE | 2018-02-15 16:25 | PROVIDER PROGRESS NOTE ---
Assessment/Plan - Problem List (1) Angioedema Qualifiers: Encounter type: initial encounter Qualified Code(s): T78.3XXA - Angioneurotic edema, initial encounter Assessment/Plan: Patient's angioedema appears to be secondary to lisinopril. The patient has normal C1 esterase inhibitor and complement C4 levels therefore does not appear to be hereditary angioedema. The patient is on lisinopril for hypertension. The patient did have presentation 2 weeks ago with similar symptoms which seem to improve with steroids and treatment in the emergency department. At that time it was not known that the patient was on lisinopril therefore she was not told to stop it. Patient was intubated in the emergency department for airway protection. Today patient continues to have swelling of her tongue although it is improved she still has copious secretions and airway appears obstructed due to enlarged tongue She is not safe for extubation Plan: Continue airway protection with mechanical ventilation Continue sedation while patient is intubated 2 units FFPs given IV Benadryl 25 mg every 6 hours IV Solu-Medrol 40 mg every 6 hours Pepcid 20 mg IV twice daily IV fluids Discontinue lisinopril Once swelling is subsided and patient has better airway we will extubate and monitor. (2) Hypertension Conclusion/Plan: The patient has a history of hypertension and was hypertensive on presentation to the emergency department with tachycardia. This appears likely secondary to distress as the patient's blood pressure and heart rate did improve once she was intubated and sedated. For now we will hold antihypertensive medications and patient will be asked to discontinue her lisinopril due to the angioedema. We will monitor the patient's blood pressure if it does become increasingly elevated we will need to start her on IV antihypertensive medications. Qualifiers: Hypertension type: essential hypertension Qualified Code(s): I10 - Essential (primary) hypertension (3) Alcohol Abuse Conclusion/Plan: According to her PCP patient is a heavy drinker We will need to watch for withdrawal if she is hospitalized long enough. (4) Leukocytosis Conclusion/Plan: Resolved Qualifiers: Leukocytosis type: unspecified Qualified Code(s): D72.829 - Elevated white blood cell count, unspecified (5) Hyperglycemia Conclusion/Plan: Improved likely secondary to steroids A1C is 5.0 - Current Meds Current Meds: Current Medications Generic Name Dose Route Start Last Admin Trade Name Freq PRN Reason Stop Dose Admin Chlorhexidine Gluconate 15 ml 02/14/18 21:00 02/15/18 08:24 Peridex PO 15 ml BID RAFAEL Administration Diphenhydramine HCl 25 mg 02/15/18 03:00 02/15/18 14:01 Benadryl Inj IVP 25 mg Q6H RAFAEL Administration Enoxaparin Sodium 40 mg 02/15/18 09:00 02/15/18 08:25 Lovenox SUBQ 40 mg DAILY RAFAEL Administration Fentanyl 25 mcg 02/14/18 13:25 02/14/18 13:47 Fentanyl IVP 25 mcg Q1H PRN Administration Agitation/Pain Hydralazine HCl 10 mg 02/14/18 23:45 02/15/18 14:02 Apresoline Inj IVP Not Given TID RAFAEL Famotidine 50 mls @ 100 mls/hr 02/14/18 21:00 02/15/18 09:00 Pepcid 20 Mg/50 Ml IV Infused BID RAFAEL Infusion Propofol 100 mls @ 2.177 mls/hr 02/14/18 13:00 02/15/18 14:52 Diprivan IV 70 mcg/kg/min TITR RAFAEL 30.482 mls/hr Titration Protocol 5 MCG/KG/MIN Sodium Chloride 1,000 mls @ 125 mls/hr 02/14/18 15:00 02/15/18 12:19 Normal Saline 0.9% IV 125 mls/hr .Q8H RAFAEL Administration Methylprednisolone 40 mg 02/14/18 21:00 02/15/18 14:01 Solu-Medrol (40mg Vial) IVP 40 mg 0300,0900,1500,2100 RAFAEL Administration Midazolam HCl 4 mg 02/14/18 14:53 02/15/18 12:29 Versed IVP 4 mg Q30M PRN Administration Agitation Sodium Chloride 10 ml 02/14/18 17:00 02/15/18 16:04 Normal Saline Flush 0.9% IVP 10 ml 0100,0900,1700 RAFAEL Administration Sodium Chloride 10 ml 02/14/18 12:12 02/15/18 14:02 Normal Saline Flush 0.9% IVP 10 ml PRN PRN Administration NEEDED PER PROVIDER ORDERS - Lab Result Lab results reviewed: Yes Fish Bone Diagrams: 02/15/18 05:05 02/15/18 07:09 - Additional Planning Condition/Complexity: Critical My Orders: My Active Orders 02/14/18 17:00 Sodium Chloride Flush 0.9% [Normal Saline Flush 0.9%] 10 ml IVP 0100,0900,1700 02/14/18 21:00 Chlorhexidine [Peridex] 15 ml PO BID Famotidine 20 mg/50 ml [Pepcid 20 mg/50 ml] 50 ml IV BID methylPREDNISolone SUCCINATE [SOLU-Medrol (40MG VIAL)] 40 mg IVP 03 00,0900,1500,2100 02/15/18 03:00 diphenhydrAMINE INJ [Benadryl Inj] 25 mg IVP Q6H 02/15/18 08:26 Extubation [Extubate] [RC] ONCE 02/15/18 09:00 ABG - ARTERIAL BLOOD GAS [BG] DAILY Enoxaparin [Lovenox] 40 mg SUBQ DAILY 02/15/18 12:31 Restraints Safety Checks [RC] Q2H Restraints [RC] Q24H 02/16/18 05:00 CBC - COMP BLD CT W/AUTO DIFF [HEME] DAILYLAB COMPREHENSIVE METABOLIC PANEL [CHEM] DAILYLAB MAGNESIUM [CHEM] DAILYLAB PHOSPHORUS [CHEM] DAILYLAB 02/16/18 09:00 ABG - ARTERIAL BLOOD GAS [BG] DAILY 02/17/18 05:00 CBC - COMP BLD CT W/AUTO DIFF [HEME] DAILYLAB COMPREHENSIVE METABOLIC PANEL [CHEM] DAILYLAB MAGNESIUM [CHEM] DAILYLAB PHOSPHORUS [CHEM] DAILYLAB 02/17/18 09:00 ABG - ARTERIAL BLOOD GAS [BG] DAILY 02/18/18 05:00 CBC - COMP BLD CT W/AUTO DIFF [HEME] DAILYLAB COMPREHENSIVE METABOLIC PANEL [CHEM] DAILYLAB MAGNESIUM [CHEM] DAILYLAB PHOSPHORUS [CHEM] DAILYLAB 02/18/18 09:00 ABG - ARTERIAL BLOOD GAS [BG] DAILY 02/19/18 05:00 CBC - COMP BLD CT W/AUTO DIFF [HEME] DAILYLAB COMPREHENSIVE METABOLIC PANEL [CHEM] DAILYLAB 02/19/18 09:00 ABG - ARTERIAL BLOOD GAS [BG] DAILY Plan Discussed with:: Patient Time Spent: 31-60 minutes Subjective - Subjective Patient Reports: Other (Intubated and sedated, did not follow commands when sedation reduced and has copious secretions, continues to have swelling of lips and tongue) Nursing Reports: No Complaints Objective Vital Signs: Vital Signs - 24 hr 02/14/18 02/14/18 02/14/18 16:44 17:00 17:40 Temperature 98.1 C H Heart Rate 81 68 Heart Rate [ 69 Monitoring electrodes] Respiratory 12 12 Rate Blood Pressure 160/82 H Blood Pressure 149/76 H [Right Brachial artery] O2 Saturation 98 02/14/18 02/14/18 02/14/18 18:00 19:00 19:45 Temperature Heart Rate 61 Heart Rate [ 63 59 L Monitoring electrodes] Respiratory 12 12 Rate Blood Pressure Blood Pressure 124/69 130/69 [Right Brachial artery] O2 Saturation 100 97 02/14/18 02/14/18 02/14/18 20:00 21:00 22:00 Temperature 36.4 C L Heart Rate Heart Rate [ 57 L 55 L 62 Monitoring electrodes] Respiratory 18 18 18 Rate Blood Pressure Blood Pressure 141/78 H 146/77 H 142/75 H [Right Brachial artery] O2 Saturation 99 98 98 02/14/18 02/14/18 02/14/18 22:20 23:00 23:39 Temperature Heart Rate 58 L Heart Rate [ 57 L Monitoring electrodes] Respiratory 18 Rate Blood Pressure 180/84 H Blood Pressure 170/82 H [Right Brachial artery] O2 Saturation 100 02/15/18 02/15/18 02/15/18 00:00 01:00 01:27 Temperature 36.8 C Heart Rate 66 Heart Rate [ 77 71 Monitoring electrodes] Respiratory 18 18 Rate Blood Pressure Blood Pressure 138/68 H 127/63 [Right Brachial artery] O2 Saturation 100 99 02/15/18 02/15/18 02/15/18 02:00 03:00 04:00 Temperature 37.1 C Heart Rate Heart Rate [ 66 64 69 Monitoring electrodes] Respiratory 18 18 18 Rate Blood Pressure Blood Pressure 136/66 H 133/61 H 128/68 [Right Brachial artery] O2 Saturation 99 98 98 02/15/18 02/15/18 02/15/18 04:34 05:00 06:00 Temperature Heart Rate 81 Heart Rate [ 75 65 Monitoring electrodes] Respiratory 21 21 Rate Blood Pressure Blood Pressure 139/79 H 118/68 [Right Brachial artery] O2 Saturation 97 96 02/15/18 02/15/18 02/15/18 06:08 06:23 07:00 Temperature Heart Rate 65 Heart Rate [ 69 Monitoring electrodes] Respiratory 22 Rate Blood Pressure 118/68 Blood Pressure 122/65 [Right Brachial artery] O2 Saturation 96 02/15/18 02/15/18 02/15/18 08:00 08:23 09:00 Temperature 36.4 C L Heart Rate 66 Heart Rate [ 65 74 Monitoring electrodes] Respiratory 18 21 Rate Blood Pressure Blood Pressure 133/77 H 154/81 H [Right Brachial artery] O2 Saturation 96 96 02/15/18 02/15/18 02/15/18 10:00 10:06 11:00 Temperature Heart Rate 66 Heart Rate [ 64 66 Monitoring electrodes] Respiratory 21 20 Rate Blood Pressure Blood Pressure 128/67 128/67 [Right Brachial artery] O2 Saturation 95 95 02/15/18 02/15/18 02/15/18 12:00 12:15 13:00 Temperature 36.6 C Heart Rate 73 Heart Rate [ 69 79 Monitoring electrodes] Respiratory 23 26 H Rate Blood Pressure Blood Pressure 132/66 H 140/60 H [Right Brachial artery] O2 Saturation 96 95 02/15/18 02/15/18 02/15/18 14:00 14:02 14:15 Temperature Heart Rate 68 Heart Rate [ 64 Monitoring electrodes] Respiratory 21 Rate Blood Pressure 124/61 Blood Pressure 124/61 [Right Brachial artery] O2 Saturation 95 02/15/18 02/15/18 15:00 16:00 Temperature 36.9 C Heart Rate Heart Rate [ 64 62 Monitoring electrodes] Respiratory 20 17 Rate Blood Pressure Blood Pressure 126/63 145/69 H [Right Brachial artery] O2 Saturation 96 96 Oxygen O2 Source Mechanical ventilator I&O (Last 24 Hrs): Intake and Output Totals x24h 02/13/18 02/14/18 02/15/18 23:59 23:59 23:59 Intake Total 3568.829 2541.613 Output Total 442 650 Balance 3126.829 1891.613 General: Other (Intubated and sedated) HEENT: Atraumatic, PERRLA, EOMI, Other (Dry mucus membranes, swollen and protruding tongue and swollen lips improved but still restricting airway) Neck: Supple, No JVD, No thyromegaly, +2 carotid pulse wo bruit, No LAD Lymphatic: other (Tonsillary swelling) Neuro: Alert, Non Focal, CN 2-12 Grossly Intact Cardiovascular: Regular rate, Normal S1, Normal S2, No murmurs Respiratory: Chest non-tender, No respiratory distress, Breath sounds nml Abdomen: Normal bowel sounds, Soft, No tenderness, No hepatospenomegaly Extremities: No clubbing, No cyanosis, No edema, Normal pulses Skin: No rashes, No breakdown - Results Results: Laboratory Results WBC 9.2 x10^3/uL (4.8-10.8) 02/15/18 05:05 RBC 3.99 10^6/uL (4.20-5.40) L 02/15/18 05:05 Hgb 14.4 g/dL (12.0-16.0) 02/15/18 05:05 Hct 42.2 % (37.0-47.0) 02/15/18 05:05 MCV 105.7 fL (81.0-99.0) H 02/15/18 05:05 MCH 36.0 pg (27.0-31.0) H 02/15/18 05:05 MCHC 34.0 g/dL (32.0-36.0) 02/15/18 05:05 RDW 14.1 % (12.0-15.0) 02/15/18 05:05 Plt Count 204 10^3/uL (130-450) 02/15/18 05:05 MPV 8.0 fL (7.9-10.8) 02/15/18 05:05 Neut # (Auto) 8.5 10^3/uL (1.5-6.6) H 02/15/18 05:05 Lymph # (Auto) 0.5 10^3/uL (1.5-3.5) L 02/15/18 05:05 Hall # (Auto) 0.2 10^3/uL (0.0-1.0) 02/15/18 05:05 Eos # (Auto) 0.0 10^3/uL (0.0-0.7) 02/15/18 05:05 Baso # (Auto) 0.0 10^3/uL (0.0-0.1) 02/15/18 05:05 Absolute Nucleated RBC 0.02 x10^3/uL 02/15/18 05:05 Nucleated RBC % 0.2 /100WBC 02/15/18 05:05 PT 10.1 secs (9.9-12.6) 02/15/18 05:05 INR 0.9 (0.8-1.2) 02/15/18 05:05 Bld Gas Analysis Time 1254 02/14/18 12:48 Sample Site LEFT RADIAL 02/14/18 12:48 ABG pH 7.32 (7.35-7.45) L 02/14/18 12:48 ABG pCO2 42 mmHg (34-45) 02/14/18 12:48 ABG pO2 76 mmHg (80-100) L 02/14/18 12:48 ABG HCO3 21.2 mmol/L (22.0-26.0) L 02/14/18 12:48 ABG Total CO2 22.5 MMOL/L (21.0-29.0) 02/14/18 12:48 ABG O2 Saturation 95 % (94-98) 02/14/18 12:48 ABG Base Excess -4.8 mmol/L (-2.0-3.0) L 02/14/18 12:48 Patricio Test POSITIVE 02/14/18 12:48 VBG pH 7.375 (7.31-7.41) 02/15/18 08:00 Ionized Calcium 1.06 mmol/L (1.15-1.33) L 02/15/18 08:00 Sodium 133 mmol/L (135-145) L 02/15/18 07:09 Potassium 3.8 mmol/L (3.5-5.0) 02/15/18 07:09 Chloride 107 mmol/L (101-111) 02/15/18 07:09 Carbon Dioxide 19 mmol/L (21-32) L 02/15/18 07:09 Anion Gap 7.0 (6-13) 02/15/18 07:09 BUN 17 mg/dL (6-20) 02/15/18 07:09 Creatinine 0.6 mg/dL (0.4-1.0) 02/15/18 07:09 Estimated GFR (MDRD) 101 (>89) 02/15/18 07:09 Glucose 132 mg/dL (70-100) H 02/15/18 07:09 Glycated Hemoglobin 5.0 % (4.6-6.2) 02/15/18 05:05 Estim Average Glucose 97 (70-100) 02/15/18 05:05 Calcium 7.9 mg/dL (8.5-10.3) L 02/15/18 07:09 Ionized Calcium YES 02/14/18 15:18 Phosphorus 3.9 mg/dL (2.5-4.6) 02/15/18 07:09 Magnesium 1.7 mg/dL (1.7-2.8) 02/15/18 07:09 Total Bilirubin 0.6 mg/dL (0.2-1.0) 02/15/18 07:09 AST 15 IU/L (10-42) 02/15/18 07:09 ALT 14 IU/L (10-60) 02/15/18 07:09 Alkaline Phosphatase 71 IU/L (42-121) 02/15/18 07:09 Total Protein 5.6 g/dL (6.7-8.2) L 02/15/18 07:09 Albumin 3.4 g/dL (3.2-5.5) 02/15/18 07:09 Globulin 2.2 g/dL (2.1-4.2) 02/15/18 07:09 Albumin/Globulin Ratio 1.5 (1.0-2.2) 02/15/18 07:09 Blood Type A POSITIVE 02/14/18 10:40 Blood Type Recheck A POSITIVE 02/14/18 15:18 - Procedures Procedures: Procedures ENDO RECTUM POLYPECTOMY (03/03/13) ABX Reporting Has patient been on IV antibiotics over the past 48 hours?: No Current Medications - Current Medications Current Medications: Active Medications Generic Name Dose Route Start Last Admin Trade Name Freq PRN Reason Stop Dose Admin Albuterol/Ipratropium 3 ml 02/14/18 12:12 Duoneb INH RTQ4H PRN Wheezing Chlorhexidine Gluconate 15 ml 02/14/18 21:00 02/15/18 08:24 Peridex PO 15 ml BID RAFAEL Administration Diphenhydramine HCl 25 mg 02/15/18 03:00 02/15/18 14:01 Benadryl Inj IVP 25 mg Q6H RAFAEL Administration Enoxaparin Sodium 40 mg 02/15/18 09:00 02/15/18 08:25 Lovenox SUBQ 40 mg DAILY RAFAEL Administration Fentanyl 25 mcg 02/14/18 13:25 02/14/18 13:47 Fentanyl IVP 25 mcg Q1H PRN Administration Agitation/Pain Hydralazine HCl 10 mg 02/14/18 23:45 02/15/18 14:02 Apresoline Inj IVP Not Given TID RAFAEL Famotidine 50 mls @ 100 mls/hr 02/14/18 21:00 02/15/18 09:00 Pepcid 20 Mg/50 Ml IV Infused BID RAFAEL Infusion Propofol 100 mls @ 2.177 mls/hr 02/14/18 13:00 02/15/18 14:52 Diprivan IV 70 mcg/kg/min TITR RAFAEL 30.482 mls/hr Titration Protocol 5 MCG/KG/MIN Sodium Chloride 1,000 mls @ 125 mls/hr 02/14/18 15:00 02/15/18 12:19 Normal Saline 0.9% IV 125 mls/hr .Q8H RAFAEL Administration Methylprednisolone 40 mg 02/14/18 21:00 02/15/18 14:01 Solu-Medrol (40mg Vial) IVP 40 mg 0300,0900,1500,2100 RAFAEL Administration Midazolam HCl 4 mg 02/14/18 14:53 02/15/18 16:29 Versed IVP 4 mg Q30M PRN Administration Agitation Ondansetron HCl 4 mg 02/14/18 12:12 Zofran Inj IVP Q6HR PRN Nausea / Vomiting Prochlorperazine Edisylate 10 mg 02/14/18 12:12 Compazine Inj IVP Q6HR PRN Nausea / Vomiting Sodium Chloride 10 ml 02/14/18 17:00 02/15/18 16:04 Normal Saline Flush 0.9% IVP 10 ml 0100,0900,1700 RAFAEL Administration Sodium Chloride 10 ml 02/14/18 12:12 02/15/18 14:02 Normal Saline Flush 0.9% IVP 10 ml PRN PRN Administration NEEDED PER PROVIDER ORDERS Ibuprofen 600 mg PO 02/14/18 Lisinopril/Hydrochlorothiazide [Lisinopril-Hctz 20-12.5 mg Tab] 1 each PO DAILY 02/14/18 Methocarbamol [Robaxin] 500 mg PO ONCE 02/14/18
[2018-02-15] MEDS ORDERED: MAGNESIUM SULFATE 2 GRAM 2 GM/50 ML BAG IV ONE (20:05)
[2018-02-15] MEDS ORDERED: SODIUM CHLORIDE 0.9% 500 ML IV PRN (20:53)
[2018-02-16] MEDS: MIDAZOLAM 2 MG/2 ML VIAL IVP PRN ×2 (00:19→04:11)
[2018-02-16] MEDS: SODIUM CHLORIDE FLUSH 0.9% 10 ML SYRINGE IVP SCH ×4 (00:20→21:03)
[2018-02-16] MEDS: PROPOFOL 1000 MG/100 ML 100 ML IV SCH ×2 (01:55→06:04)
[2018-02-16] MEDS: methylPREDNISolone SUCCINATE 40 MG/ML VIAL IVP SCH ×2 (03:07→08:28)
[2018-02-16] MEDS: diphenhydrAMINE INJ 50 MG/ML VIAL IVP SCH ×2 (03:07→08:25)
[2018-02-16] MEDS: SODIUM CHLORIDE 0.9% 1,000 ML IV SCH ×2 (04:10→12:30)
[2018-02-16 05:10] LABS: BASOPHILS % (AUTO) 0.1 %; HGB - HEMOGLOBIN 13.8 g/dL (12.0-16.0); LYMPHOCYTES # (AUTO) 0.6 10^3/uL (1.5-3.5); LYMPHOCYTES % (AUTO) 2.9 %; MEAN CORPUSCULAR HEMOGLOBIN 35.3 pg (27.0-31.0); MEAN CORPUSCULAR HGB CONC 32.4 g/dL (32.0-36.0); MEAN PLATELET VOLUME 8.5 fL (7.9-10.8); MONOCYTES % (AUTO) 4.9 %; NEUTROPHILS # (AUTO) 18.3 10^3/uL (1.5-6.6); NEUTROPHILS % (AUTO) 92.1 %; PLT - PLATELET COUNT 189 10^3/uL (130-450); RED CELL DISTRIBUTION WIDTH 15.3 % (12.0-15.0); WHITE BLOOD COUNT 19.9 x10^3/uL (4.8-10.8)
[2018-02-16 05:22] LABS: ALBUMIN 3.4 g/dL (3.2-5.5); ALBUMIN/GLOBULIN RATIO 1.3 (1.0-2.2); BILIRUBIN,TOTAL 0.5 mg/dL (0.2-1.0); CALCIUM 8.4 mg/dL (8.5-10.3); CREATININE 0.6 mg/dL (0.4-1.0); MAGNESIUM 2.5 mg/dL (1.7-2.8); PHOSPHORUS 2.9 mg/dL (2.5-4.6)
[2018-02-16 05:37] LABS: ABG BASE EXCESS -5.1 mmol/L (-2.0-3.0); ABG HCO3 19.2 mmol/L (22.0-26.0); ABG OXYGEN SATURATION 97 % (94-98); ABG PCO2 34 mmHg (34-45); ABG PH 7.37 (7.35-7.45); ABG PO2 90 mmHg (80-100); ABG TCO2 20.2 MMOL/L (21.0-29.0); ALLEN TEST POSITIVE
[2018-02-16] MEDS: hydrALAZINE INJ 20 MG/ML VIAL IVP SCH (06:11)
--- NOTE | 2018-02-16 06:28 | XRAY Report ---
Reason: vent Procedure Date: 02/16/2018 Accession Number: [id number] / [id number] Procedure: XR - Chest 1 View X-Ray CPT Code: 71665 FULL RESULT: EXAM: CHEST RADIOGRAPHY EXAM DATE: 02/16/2018 06:13 AM. CLINICAL HISTORY: Vent. COMPARISON: CHEST 1 VIEW 02/14/2018 3:19 PM CHEST 1 VIEW 02/14/2018 12:03 PM. TECHNIQUE: 1 view. FINDINGS: Lungs/Pleura: No focal opacities evident. No pleural effusion. No pneumothorax. Mediastinum: Within exam limitations, the cardiomediastinal contour is normal. Other: Endotracheal tube terminates 6 cm above the current. Enteric tube terminates in the stomach. IMPRESSION: Endotracheal tube now terminating 6 cm above the yolanda. RADIA
[2018-02-16] MEDS: FAMOTIDINE 20 MG/50 ML 50 ML IV SCH (08:32)
[2018-02-16] MEDS: ENOXAPARIN 40 MG/0.4 ML SYRINGE SUBQ SCH (08:32)
[2018-02-16] MEDS: CHLORHEXIDINE GLUCONATE 15 ML UDC PO SCH (08:37)
[2018-02-16] MEDS ORDERED: RACEPINEPHRINE 2.25% NEB INH SCH (11:11)
[2018-02-16] MEDS: diphenhydrAMINE 25 MG CAPSULE PO SCH ×2 (15:14→21:02)
--- NOTE | 2018-02-16 15:20 | PROVIDER PROGRESS NOTE ---
Assessment/Plan - Problem List (1) Angioedema Qualifiers: Encounter type: initial encounter Qualified Code(s): T78.3XXA - Angioneurotic edema, initial encounter Assessment/Plan: Patient's angioedema appears to be secondary to lisinopril. The patient has normal C1 esterase inhibitor and complement C4 levels therefore does not appear to be hereditary angioedema. The patient is on lisinopril for hypertension. The patient did have presentation 2 weeks ago with similar symptoms which seem to improve with steroids and treatment in the emergency department. At that time it was not known that the patient was on lisinopril therefore she was not told to stop it. Patient was intubated in the emergency department for airway protection. Today patients swelling is much improved therefore will extubate Given the difficulties with intubation we will extubate with anesthesia at bedside Extubation was successful We will monitor patient overnight tonight as she was intubated for 2 days to ensure she does well before discharging her in the am. Plan: Extubate Change to PO prednisone and PO benadryl Change to med surg status Monitor overnight Discontinue lisinopril (2) Hypertension Conclusion/Plan: Patients BP still elevated Lisinopril was discontinued Will restart HCTZ and start patient on amlodipine Qualifiers: Hypertension type: essential hypertension Qualified Code(s): I10 - Essential (primary) hypertension (3) Alcohol Abuse Conclusion/Plan: According to her PCP patient is a heavy drinker Stable no signs of withdrawal (4) Leukocytosis Conclusion/Plan: WBC elevated this am to 19.9 likely steroid induced Qualifiers: Leukocytosis type: unspecified Qualified Code(s): D72.829 - Elevated white blood cell count, unspecified (5) Hyperglycemia Conclusion/Plan: Improved likely secondary to steroids A1C is 5.0 - Current Meds Current Meds: Current Medications Generic Name Dose Route Start Last Admin Trade Name Freq PRN Reason Stop Dose Admin Diphenhydramine HCl 25 mg 02/16/18 15:00 02/16/18 15:14 Benadryl PO 25 mg Q6H RAFAEL Administration Enoxaparin Sodium 40 mg 02/15/18 09:00 02/16/18 08:32 Lovenox SUBQ 40 mg DAILY RAFAEL Administration Fentanyl 25 mcg 02/14/18 13:25 02/14/18 13:47 Fentanyl IVP 25 mcg Q1H PRN Administration Agitation/Pain Sodium Chloride 10 ml 02/14/18 17:00 02/16/18 09:00 Normal Saline Flush 0.9% IVP 20 ml 0100,0900,1700 RAFAEL Administration Sodium Chloride 10 ml 02/14/18 12:12 02/15/18 18:14 Normal Saline Flush 0.9% IVP 10 ml PRN PRN Administration NEEDED PER PROVIDER ORDERS - Lab Result Lab results reviewed: Yes Fish Bone Diagrams: 02/16/18 04:15 02/16/18 04:15 - Diagnostic Imaging Results Diagnostic Imaging Results: Final report reviewed - Additional Planning Condition/Complexity: Guarded My Orders: My Active Orders 02/16/18 14:15 Strickland Discontinuation [RC] ONCE 02/16/18 14:19 Admit [Admit \ Transfer \ Status] [RC] .ONCE 02/16/18 14:20 RT [Oxygen Therapy] [RC] .PRN 02/16/18 15:00 diphenhydrAMINE [Benadryl] 25 mg PO Q6H hydroCHLOROthiazide [Hydrodiuril] 25 mg PO DAILY 02/16/18 16:30 Multivitamin W/Minerals Liq [Centrum] 15 ml PO DAILY 02/16/18 21:00 Famotidine [Pepcid] 20 mg PO BID 02/16/18 Dinner Regular Diet [DIET] 02/17/18 05:00 CBC - COMP BLD CT W/AUTO DIFF [HEME] DAILYLAB COMPREHENSIVE METABOLIC PANEL [CHEM] DAILYLAB MAGNESIUM [CHEM] DAILYLAB PHOSPHORUS [CHEM] DAILYLAB 02/17/18 08:00 predniSONE [Deltasone] 20 mg PO DAILYWM 02/17/18 09:00 ABG - ARTERIAL BLOOD GAS [BG] DAILY amLODIPine [Norvasc] 5 mg PO DAILY 02/18/18 05:00 CBC - COMP BLD CT W/AUTO DIFF [HEME] DAILYLAB COMPREHENSIVE METABOLIC PANEL [CHEM] DAILYLAB MAGNESIUM [CHEM] DAILYLAB PHOSPHORUS [CHEM] DAILYLAB 02/18/18 09:00 ABG - ARTERIAL BLOOD GAS [BG] DAILY 02/19/18 05:00 CBC - COMP BLD CT W/AUTO DIFF [HEME] DAILYLAB COMPREHENSIVE METABOLIC PANEL [CHEM] DAILYLAB 02/19/18 09:00 ABG - ARTERIAL BLOOD GAS [BG] DAILY Plan Discussed with:: Patient Time Spent: Greater than 60 minutes Subjective - Subjective Patient Reports: Other (Post extubation patient feels weak and groggy otherwise well. Says her lip and tongue swelling has resolved. She is not short of breath.) Nursing Reports: No Complaints Objective Vital Signs: Vital Signs - 24 hr 02/15/18 02/15/18 02/15/18 16:00 16:20 17:00 Temperature 36.9 C Heart Rate 61 Heart Rate [ 62 61 Monitoring electrodes] Respiratory 17 24 Rate Blood Pressure Blood Pressure 145/69 H 162/79 H [Right Brachial artery] O2 Saturation 96 96 02/15/18 02/15/18 02/15/18 18:00 18:06 18:13 Temperature Heart Rate 63 Heart Rate [ 59 L Monitoring electrodes] Respiratory 19 Rate Blood Pressure 170/78 H Blood Pressure 166/78 H [Right Brachial artery] O2 Saturation 97 02/15/18 02/15/18 02/15/18 18:58 19:28 20:00 Temperature 37.1 C Heart Rate Heart Rate [ 72 67 68 Monitoring electrodes] Respiratory 24 18 24 Rate Blood Pressure Blood Pressure 128/68 118/67 [Right Brachial artery] O2 Saturation 96 96 96 02/15/18 02/15/18 02/15/18 20:25 21:00 22:00 Temperature Heart Rate 64 Heart Rate [ 63 60 Monitoring electrodes] Respiratory 23 22 23 Rate Blood Pressure Blood Pressure 138/74 H 138/68 H [Right Brachial artery] O2 Saturation 97 97 02/15/18 02/15/18 02/16/18 22:23 23:00 00:00 Temperature 36.7 C Heart Rate 62 Heart Rate [ 59 L 68 Monitoring electrodes] Respiratory 21 20 Rate Blood Pressure Blood Pressure 121/62 156/74 H [Right Brachial artery] O2 Saturation 95 97 02/16/18 02/16/18 02/16/18 00:20 01:00 02:00 Temperature Heart Rate 70 Heart Rate [ 75 71 Monitoring electrodes] Respiratory 28 H 23 Rate Blood Pressure Blood Pressure 162/91 H 147/71 H [Right Brachial artery] O2 Saturation 98 98 02/16/18 02/16/18 02/16/18 02:11 03:00 03:43 Temperature Heart Rate 73 78 Heart Rate [ 80 Monitoring electrodes] Respiratory 23 Rate Blood Pressure Blood Pressure 177/88 H [Right Brachial artery] O2 Saturation 99 02/16/18 02/16/1818 04:00 05:00 05:43 Temperature 37.1 C Heart Rate 89 Heart Rate [ 79 69 Monitoring electrodes] Respiratory 27 H 11 L Rate Blood Pressure Blood Pressure 159/79 H 167/90 H [Right Brachial artery] O2 Saturation 97 98 02/16/18 02/16/18 02/16/18 06:00 06:11 07:36 Temperature Heart Rate 74 Heart Rate [ 87 Monitoring electrodes] Respiratory 24 Rate Blood Pressure 172/87 H Blood Pressure 172/87 H [Right Brachial artery] O2 Saturation 96 02/16/18 02/16/18 02/16/18 08:00 08:04 08:43 Temperature 37.5 C Heart Rate 72 Heart Rate [ 77 78 Monitoring electrodes] Respiratory 20 22 22 Rate Blood Pressure Blood Pressure 148/79 H 148/79 H [Right Brachial artery] O2 Saturation 98 98 02/16/18 02/16/18 02/16/18 09:00 09:30 09:45 Temperature Heart Rate 87 Heart Rate [ 79 78 86 Monitoring electrodes] Respiratory 24 22 17 Rate Blood Pressure Blood Pressure 150/78 H 150/78 H 150/98 H [Right Brachial artery] O2 Saturation 100 98 99 02/16/18 02/16/18 02/16/18 10:00 10:15 11:00 Temperature Heart Rate Heart Rate [ 89 94 88 Monitoring electrodes] Respiratory 24 17 19 Rate Blood Pressure Blood Pressure 159/82 H 173/84 H 167/85 H [Right Brachial artery] O2 Saturation 96 99 95 02/16/18 02/16/18 02/16/18 11:22 12:00 13:00 Temperature 37.7 C H Heart Rate 88 Heart Rate [ 95 87 Monitoring electrodes] Respiratory 22 18 Rate Blood Pressure Blood Pressure 171/80 H 178/81 H [Right Brachial artery] O2 Saturation 95 95 02/16/18 02/16/18 02/16/18 13:15 13:45 14:00 Temperature Heart Rate 97 Heart Rate [ 89 90 89 Monitoring electrodes] Respiratory 19 18 28 H Rate Blood Pressure Blood Pressure 172/85 H 164/90 H 164/90 H [Right Brachial artery] O2 Saturation 97 98 97 Oxygen O2 Source Nasal cannula I&O (Last 24 Hrs): Intake and Output Totals x24h 02/14/18 02/15/18 02/16/18 23:59 23:59 23:59 Intake Total 3568.829 3791.837 2844.750 Output Total 442 1093 1617 Balance 3126.829 2698.837 1227.750 General: Alert, Oriented x3, Cooperative, No acute distress HEENT: Atraumatic, PERRLA, EOMI, Mucous membr. moist/pink, Other (Lip and tongue swelling improved) Neck: Supple, No JVD, No thyromegaly, +2 carotid pulse wo bruit, No LAD Lymphatic: no adenopathy Neuro: Alert, Non Focal, CN 2-12 Grossly Intact, Oriented Times 3 Cardiovascular: Regular rate, Normal S1, Normal S2, No murmurs Respiratory: Chest non-tender, No respiratory distress, Breath sounds nml Abdomen: Normal bowel sounds, Soft, No tenderness, No hepatospenomegaly Extremities: No clubbing, No cyanosis, No edema, Normal pulses Skin: No rashes, No breakdown - Results Results: Laboratory Results WBC 19.9 x10^3/uL (4.8-10.8) H 02/16/18 04:15 RBC 3.90 10^6/uL (4.20-5.40) L 02/16/18 04:15 Hgb 13.8 g/dL (12.0-16.0) 02/16/18 04:15 Hct 42.5 % (37.0-47.0) 02/16/18 04:15 MCV 109.0 fL (81.0-99.0) H 02/16/18 04:15 MCH 35.3 pg (27.0-31.0) H 02/16/18 04:15 MCHC 32.4 g/dL (32.0-36.0) 02/16/18 04:15 RDW 15.3 % (12.0-15.0) H 02/16/18 04:15 Plt Count 189 10^3/uL (130-450) 02/16/18 04:15 MPV 8.5 fL (7.9-10.8) 02/16/18 04:15 Neut # (Auto) 18.3 10^3/uL (1.5-6.6) H 02/16/18 04:15 Lymph # (Auto) 0.6 10^3/uL (1.5-3.5) L 02/16/18 04:15 [place] # (Auto) 1.0 10^3/uL (0.0-1.0) 02/16/18 04:15 Eos # (Auto) 0.0 10^3/uL (0.0-0.7) 02/16/18 04:15 Baso # (Auto) 0.0 10^3/uL (0.0-0.1) 02/16/18 04:15 Absolute Nucleated RBC 0.02 x10^3/uL 02/16/18 04:15 Nucleated RBC % 0.1 /100WBC 02/16/18 04:15 PT 10.1 secs (9.9-12.6) 02/15/18 05:05 INR 0.9 (0.8-1.2) 02/15/18 05:05 Bld Gas Analysis Time 0534 02/16/18 05:25 Sample Site LEFT BRACHIAL 02/16/18 05:25 ABG pH 7.37 (7.35-7.45) 02/16/18 05:25 ABG pCO2 34 mmHg (34-45) 02/16/18 05:25 ABG pO2 90 mmHg (80-100) 02/16/18 05:25 ABG HCO3 19.2 mmol/L (22.0-26.0) L 02/16/18 05:25 ABG Total CO2 20.2 MMOL/L (21.0-29.0) L 02/16/18 05:25 ABG O2 Saturation 97 % (94-98) 02/16/18 05:25 ABG Base Excess -5.1 mmol/L (-2.0-3.0) L 02/16/18 05:25 Patricio Test POSITIVE 02/16/18 05:25 VBG pH 7.375 (7.31-7.41) 02/15/18 08:00 Ionized Calcium 1.06 mmol/L (1.15-1.33) L 02/15/18 08:00 Respiration Rate 16 b/min 02/16/18 05:25 O2 Delivery Device VENTILATOR 02/16/18 05:25 FiO2 30.00 02/16/18 05:25 Tidal Volume 400 mL 02/16/18 05:25 PEEP 5 cmH2O 02/16/18 05:25 Pressure Support Vent 10 cmH2O 02/16/18 05:25 Sodium 136 mmol/L (135-145) 02/16/18 04:15 Potassium 4.1 mmol/L (3.5-5.0) 02/16/18 04:15 Chloride 107 mmol/L (101-111) 02/16/18 04:15 Carbon Dioxide 19 mmol/L (21-32) L 02/16/18 04:15 Anion Gap 10.0 (6-13) 02/16/18 04:15 BUN 20 mg/dL (6-20) 02/16/18 04:15 Creatinine 0.6 mg/dL (0.4-1.0) 02/16/18 04:15 Estimated GFR (MDRD) 101 (>89) 02/16/18 04:15 Glucose 122 mg/dL (70-100) H 02/16/18 04:15 Glycated Hemoglobin 5.0 % (4.6-6.2) 02/15/18 05:05 Estim Average Glucose 97 (70-100) 02/15/18 05:05 Calcium 8.4 mg/dL (8.5-10.3) L 02/16/18 04:15 Ionized Calcium YES 02/14/18 15:18 Phosphorus 2.9 mg/dL (2.5-4.6) 02/16/18 04:15 Magnesium 2.5 mg/dL (1.7-2.8) 02/16/18 04:15 Total Bilirubin 0.5 mg/dL (0.2-1.0) 02/16/18 04:15 AST 17 IU/L (10-42) 02/16/18 04:15 ALT 14 IU/L (10-60) 02/16/18 04:15 Alkaline Phosphatase 65 IU/L (42-121) 02/16/18 04:15 Total Protein 6.0 g/dL (6.7-8.2) L 02/16/18 04:15 Albumin 3.4 g/dL (3.2-5.5) 02/16/18 04:15 Globulin 2.6 g/dL (2.1-4.2) 02/16/18 04:15 Albumin/Globulin Ratio 1.3 (1.0-2.2) 02/16/18 04:15 Blood Type A POSITIVE 02/14/18 10:40 Blood Type Recheck A POSITIVE 02/14/18 15:18 - Procedures Procedures: Procedures ENDO RECTUM POLYPECTOMY (03/03/13) ABX Reporting Has patient been on IV antibiotics over the past 48 hours?: No Current Medications - Current Medications Current Medications: Active Medications Generic Name Dose Route Start Last Admin Trade Name Freq PRN Reason Stop Dose Admin Albuterol/Ipratropium 3 ml 02/14/18 12:12 Duoneb INH RTQ4H PRN Wheezing Amlodipine Besylate 5 mg 02/17/18 09:00 Norvasc PO DAILY RAFAEL Diphenhydramine HCl 25 mg 02/16/18 15:00 02/16/18 15:14 Benadryl PO 25 mg Q6H RAFAEL Administration Enoxaparin Sodium 40 mg 02/15/18 09:00 02/16/18 08:32 Lovenox SUBQ 40 mg DAILY RAFAEL Administration Famotidine 20 mg 02/16/18 21:00 Pepcid PO BID RAFAEL Fentanyl 25 mcg 02/14/18 13:25 02/14/18 13:47 Fentanyl IVP 25 mcg Q1H PRN Administration Agitation/Pain Hydrochlorothiazide 25 mg 02/16/18 15:00 Hydrodiuril PO DAILY [facility] Multivitamins/Folic Acid/Vitamin C 15 ml 02/16/18 16:30 Centrum PO DAILY [facility] Ondansetron HCl 4 mg 02/14/18 12:12 Zofran Inj IVP Q6HR PRN Nausea / Vomiting Prednisone 20 mg 02/17/18 08:00 Deltasone PO DAILYWM [facility] Prochlorperazine Edisylate 10 mg 02/14/18 12:12 Compazine Inj IVP Q6HR PRN Nausea / Vomiting Sodium Chloride 10 ml 02/14/18 17:00 02/16/18 09:00 Normal Saline Flush 0.9% IVP 20 ml 0100,0900,1700 RAFAEL Administration Sodium Chloride 10 ml 02/14/18 12:12 02/15/18 18:14 Normal Saline Flush 0.9% IVP 10 ml PRN PRN Administration NEEDED PER PROVIDER ORDERS Ibuprofen 600 mg PO TID PRN 02/14/18 Methocarbamol [Robaxin] 1,000 - 1,500 mg PO BID PRN 02/14/18
[2018-02-16] MEDS: hydroCHLOROthiazide 25 MG TABLET PO SCH (15:23)
[2018-02-16] MEDS: IPRATROPIUM/ALBUTEROL 3 ML NEB INH PRN (16:05)
[2018-02-16] MEDS: MULTIVITAMIN W/IRON, MINERALS 15 ML PO SCH (17:11)
[2018-02-16] MEDS ORDERED: hydrALAZINE INJ 20 MG/ML VIAL IVP PRN (17:33)
[2018-02-16] MEDS: amLODIPine 5 MG TABLET PO SCH (18:13)
[2018-02-16] MEDS: fentaNYL 100 MCG/2 ML VIAL IVP PRN (21:02)
[2018-02-16] MEDS: FAMOTIDINE 20 MG TABLET PO SCH (21:02)
[2018-02-16] MEDS ORDERED: ACETAMINOPHEN 325 MG TABLET PO PRN (22:19)
[2018-02-17] MEDS: diphenhydrAMINE 25 MG CAPSULE PO SCH ×2 (03:03→08:00)
[2018-02-17] MEDS: IPRATROPIUM/ALBUTEROL 3 ML NEB INH PRN (03:31)
[2018-02-17 04:40] LABS: BASOPHILS % (AUTO) 0.1 %; EOSINOPHILS % (AUTO) 0.1 %; HGB - HEMOGLOBIN 12.6 g/dL (12.0-16.0); LYMPHOCYTES # (AUTO) 1.4 10^3/uL (1.5-3.5); LYMPHOCYTES % (AUTO) 11.3 %; MEAN CORPUSCULAR HEMOGLOBIN 35.2 pg (27.0-31.0); MEAN CORPUSCULAR HGB CONC 33.4 g/dL (32.0-36.0); MEAN CORPUSCULAR VOLUME 105.1 fL (81.0-99.0); MEAN PLATELET VOLUME 7.8 fL (7.9-10.8); MONOCYTES # (AUTO) 0.9 10^3/uL (0.0-1.0); MONOCYTES % (AUTO) 7.2 %; NEUTROPHILS # (AUTO) 10.1 10^3/uL (1.5-6.6); NEUTROPHILS % (AUTO) 81.3 %; PLT - PLATELET COUNT 159 10^3/uL (130-450); RED BLOOD COUNT 3.59 10^6/uL (4.20-5.40); RED CELL DISTRIBUTION WIDTH 14.4 % (12.0-15.0); WHITE BLOOD COUNT 12.5 x10^3/uL (4.8-10.8)
[2018-02-17 04:50] LABS: ALBUMIN 3.2 g/dL (3.2-5.5); ALBUMIN/GLOBULIN RATIO 1.2 (1.0-2.2); BILIRUBIN,TOTAL 0.8 mg/dL (0.2-1.0); CALCIUM 8.5 mg/dL (8.5-10.3); CREATININE 0.6 mg/dL (0.4-1.0); MAGNESIUM 1.8 mg/dL (1.7-2.8); PHOSPHORUS 1.5 mg/dL (2.5-4.6); TOTAL PROTEIN 5.8 g/dL (6.7-8.2)
[2018-02-17 07:39] VITALS: BP 142/85
[2018-02-17] MEDS: SODIUM CHLORIDE FLUSH 0.9% 10 ML SYRINGE IVP SCH (08:00)
[2018-02-17] MEDS ORDERED: predniSONE 20 MG TABLET PO SCH (08:00)
[2018-02-17] MEDS: amLODIPine 5 MG TABLET PO SCH (08:00)
[2018-02-17] MEDS: MULTIVITAMIN W/IRON, MINERALS 15 ML PO SCH (08:00)
[2018-02-17] MEDS: ENOXAPARIN 40 MG/0.4 ML SYRINGE SUBQ SCH (08:00)
[2018-02-17] MEDS: hydroCHLOROthiazide 25 MG TABLET PO SCH (08:00)
[2018-02-17] MEDS: FAMOTIDINE 20 MG TABLET PO SCH (08:00)
[2018-02-17] MEDS ORDERED: amLODIPine 5 MG TABLET PO SCH (09:00)
--- NOTE | 2018-02-17 09:08 | Discharge Plan ---
Discharge Plan Disposition: 01 Home, Self Care Condition: Stable Prescriptions: amLODIPine [Norvasc] 5 mg PO DAILY #30 tablet hydroCHLOROthiazide [Hydrodiuril] 25 mg PO DAILY #30 tablet Diet: Regular Activity Restrictions: Activity as Tolerated Shower Restrictions: No Driving Restrictions: No Weight Bearing: Full Weight Additional Instructions or Follow Up instructions: You came into the emergency department with swelling of your tongue and your lips and difficulty breathing. You were found to have angioedema and required intubation. They were placed on a ventilator for 2 days until the swelling subsided. You were treated with steroids and Benadryl. It appears that your swelling has completely resolved. You were extubated yesterday and are doing very well this morning. The cause of your angioedema was a medication called lisinopril. We advised that you never take lisinopril again for any other kind of TELMA inhibitor. For your blood pressure we have now prescribed you to new medications 1 of which is amlodipine and the other one is hydrochlorothiazide. These have been sent to your pharmacy and you can pick them up tomorrow. I advised that you take it easy for the next couple days and if you have any further swelling in your lips or tongue please return to the emergency department. You will not need to take any further steroids or Benadryl for the swelling as it has resolved. No Smoking: If you smoke, Please STOP! Call for help. Follow-up with: Lissy Bailey PA [Primary Care Provider] -
--- NOTE | 2018-02-17 09:18 | DISCHARGE SUMMARY ---
Discharge Summary Admit Date: 02/15/18 Discharge Date: 02/17/18 Discharging Provider: Nils Shea MD Primary Care Provider: Lissy Bailey MD Code Status: Attempt Resuscitation Condition at Discharge: Stable Discharge Disposition: 01 Home, Self Care - DIAGNOSES Admission Diagnoses: 1. Angioedema 2. Hypertension 3. Leukocytosis 4. Hyperglycemia Discharge Diagnoses with Status of Each Condition: 1. Angioedema: Resolved 2. Hypertension: Stable 3. Alcohol abuse: Stable 4. Leukocytosis: Resolved 5. Hyperglycemia: Improved - HPI History of Present Illness: Patient is a 62-year-old female with a past medical history significant for hypertension, asthma and osteoarthritis who presents to the emergency department with a chief complaint of tongue and lip swelling. The patient had a similar presentation to the emergency department on 01/25/2018 with some mild swelling o f her lips and her tongue. She was thought to have angioedema at that time and was treated with Decadron and Zyrtec. The patient told the emergency room physician at that time that she was not on lisinopril. The emergency room physician did do testing for complement factor C4 C, C1 esterase inhibitor protein and functional C1 esterase inhibitor. These tests were negative. The patient returned again to the emergency department today having driven herself to the emergency department with similar complaint. She stated that she began having lip and tongue swelling earlier in the day and it has progressed rapidly to a point where she had to come into the emergency department. The patient was unable to speak and was beginning to drool. Patient had to communicate by writing things on paper. The patient was unable to provide history as by the time I saw the patient she had already been intubated. According to what she told the emergency department physician she was not having any other complaints prior to this swelling. The patient was having drooling and began having difficulty with her breathing. Given the severity of her angioedema the patient was intubated in the emergency department for airway protection. Looking through her medication bottles the patient was on lisinopril/hydrochlorothiazide which we were not aware of on her previous presentation. Given her normal blood testing from previous presentation and the fact that she is on lisinopril this was thought to be lisinopril induced angioedema. The patient was given FFP, Benadryl, Decadron and racemic epi in the emergency department. The patient was admitted to the intensive care unit on a ventilator with propofol drip for sedation. Patient was unable to provide a review of systems secondary to being intubated and sedated. - HOSPITAL COURSE Hospital Course: The patient required intubation via nasal airway as oral pharyngeal intubation was not possible secondary to severity of angioedema. She remained intubated for 2 days to protect her airway due to severe angioedema with swelling of her lips, tongue and upper airway. She was treated with IV solumedrol, IV benadryl and IV pepcid during this time. The patient was extubated on the afternoon of 02/16/2018 after her swelling had receded significantly. The extubation was done with anesthesia at the bedside and the case the patient needed to be reintubated. Extubation was successful and patient was able to breathe on her own and protect her airway. The cause of the patient's angioedema was thought to be lisinopril. The patient's lisinopril was discontinued and she was advised never to use TELMA inhibitors in the future. It does appear however that the patient previously had some mild angioedema before she was started on lisinopril. The patient stated that her sister has hereditary angioedema. The patient may have some component of hereditary angioedema although this appears to be mild and her C1 esterase inhibitor protein and functional C1 esterase inhibitor tests were all within normal limits. Once the patient was extubated she remained stable. She was discharged home the next morning in good condition. She was prescribed amlodipine and hydrochlorothiazide for her hypertension. She will follow-up with her primary care physician. I would advise that the patient see an database marketing specialist to have further testing performed. - ALLERGIES Allergies/Adverse Reactions: Allergies Allergy/AdvReac Type Severity Reaction Status Date / Time lisinopril Allergy Severe Edema Verified 02/14/18 19:56 codeine Allergy Intermediate Itching Verified 01/25/18 08:26 - MEDICATIONS Home Medications: Ambulatory Orders Medication Instructions Recorded Confirmed Ibuprofen 600 mg PO TID PRN 02/14/18 02/16/18 Methocarbamol [Robaxin] 1,000 - 1,500 mg PO BID PRN 02/14/18 02/16/18 amLODIPine [Norvasc] 5 mg PO DAILY #30 tablet 02/17/18 hydroCHLOROthiazide [Hydrodiuril] 25 mg PO DAILY #30 tablet 02/17/18 - PHYSICAL EXAM AT DISCHARGE General Appearance: positive: No acute distress, Alert Eyes Bilateral: positive: Normal inspection, PERRL, EOMI, No lid inflammation, Conjunctivae nml, No scleral icterus ENT: positive: ENT inspection nml, Pharynx nml, No signs of dehydration. negative: Purulent nasal drainage, Pharyngeal erythema, Oral lesions Neck: positive: Nml inspection, Thyroid nml, No JVD, Trachea midline. negative: Thyromegaly, Lymphadenopathy (R), Lymphadenopathy (L), Stiff neck, Carotid bruit, Tracheal deviation Respiratory: positive: Chest non-tender, No respiratory distress, Breath sounds nml. negative: Wheezes, Rales, Rhonchi Cardiovascular: positive: Regular rate & rhythm, No murmur, No gallop Peripheral Pulses: positive: 2+ Abdomen: positive: Non-tender, No organomegaly, Nml bowel sounds, No distention. negative: Guarding, Rebound, Hepatomegaly Back: positive: Nml inspection. negative: CVA tenderness (R), CVA tenderness (L) Skin: positive: Color nml, No rash, Warm. negative: Cyanosis, Diaphoresis, Pallor Extremities: positive: Non-tender, Full ROM, Nml appearance, No pedal edema Neurologic/Psychiatric: positive: Oriented x3, CN's nml (2-12), Motor nml, Sensation nml, Mood/affect nml - LABS Result Diagrams: 02/17/18 04:25 02/17/18 04:25 Other Lab Results: Laboratory Results WBC 12.5 x10^3/uL (4.8-10.8) H 02/17/18 04:25 RBC 3.59 10^6/uL (4.20-5.40) L 02/17/18 04:25 Hgb 12.6 g/dL (12.0-16.0) 02/17/18 04:25 Hct 37.7 % (37.0-47.0) 02/17/18 04:25 MCV 105.1 fL (81.0-99.0) H 02/17/18 04:25 MCH 35.2 pg (27.0-31.0) H 02/17/18 04:25 MCHC 33.4 g/dL (32.0-36.0) 02/17/18 04:25 RDW 14.4 % (12.0-15.0) 02/17/18 04:25 Plt Count 159 10^3/uL (130-450) 02/17/18 04:25 MPV 7.8 fL (7.9-10.8) L 02/17/18 04:25 Neut # (Auto) 10.1 10^3/uL (1.5-6.6) H 02/17/18 04:25 Lymph # (Auto) 1.4 10^3/uL (1.5-3.5) L 02/17/18 04:25 Archer # (Auto) 0.9 10^3/uL (0.0-1.0) 02/17/18 04:25 Eos # (Auto) 0.0 10^3/uL (0.0-0.7) 02/17/18 04:25 Baso # (Auto) 0.0 10^3/uL (0.0-0.1) 02/17/18 04:25 Absolute Nucleated RBC 0.01 x10^3/uL 02/17/18 04:25 Nucleated RBC % 0.1 /100WBC 02/17/18 04:25 PT 10.1 secs (9.9-12.6) 02/15/18 05:05 INR 0.9 (0.8-1.2) 02/15/18 05:05 Bld Gas Analysis Time 0534 02/16/18 05:25 Sample Site LEFT BRACHIAL 02/16/18 05:25 ABG pH 7.37 (7.35-7.45) 02/16/18 05:25 ABG pCO2 34 mmHg (34-45) 02/16/18 05:25 ABG pO2 90 mmHg (80-100) 02/16/18 05:25 ABG HCO3 19.2 mmol/L (22.0-26.0) L 02/16/18 05:25 ABG Total CO2 20.2 MMOL/L (21.0-29.0) L 02/16/18 05:25 ABG O2 Saturation 97 % (94-98) 02/16/18 05:25 ABG Base Excess -5.1 mmol/L (-2.0-3.0) L 02/16/18 05:25 Patricio Test POSITIVE 02/16/18 05:25 VBG pH 7.375 (7.31-7.41) 02/15/18 08:00 Ionized Calcium 1.06 mmol/L (1.15-1.33) L 02/15/18 08:00 Respiration Rate 16 b/min 02/16/18 05:25 O2 Delivery Device VENTILATOR 02/16/18 05:25 FiO2 30.00 02/16/18 05:25 Tidal Volume 400 mL 02/16/18 05:25 PEEP 5 cmH2O 02/16/18 05:25 Pressure Support Vent 10 cmH2O 02/16/18 05:25 Sodium 139 mmol/L (135-145) 02/17/18 04:25 Potassium 2.9 mmol/L (3.5-5.0) L 02/17/18 04:25 Chloride 108 mmol/L (101-111) 02/17/18 04:25 Carbon Dioxide 24 mmol/L (21-32) 02/17/18 04:25 Anion Gap 7.0 (6-13) 02/17/18 04:25 BUN 17 mg/dL (6-20) 02/17/18 04:25 Creatinine 0.6 mg/dL (0.4-1.0) 02/17/18 04:25 Estimated GFR (MDRD) 101 (>89) 02/17/18 04:25 Glucose 106 mg/dL (70-100) H 02/17/18 04:25 Glycated Hemoglobin 5.0 % (4.6-6.2) 02/15/18 05:05 Estim Average Glucose 97 (70-100) 02/15/18 05:05 Calcium 8.5 mg/dL (8.5-10.3) 02/17/18 04:25 Ionized Calcium YES 02/14/18 15:18 Phosphorus 1.5 mg/dL (2.5-4.6) L 02/17/18 04:25 Magnesium 1.8 mg/dL (1.7-2.8) 02/17/18 04:25 Total Bilirubin 0.8 mg/dL (0.2-1.0) 02/17/18 04:25 AST 16 IU/L (10-42) 02/17/18 04:25 ALT 15 IU/L (10-60) 02/17/18 04:25 Alkaline Phosphatase 59 IU/L (42-121) 02/17/18 04:25 Total Protein 5.8 g/dL (6.7-8.2) L 02/17/18 04:25 Albumin 3.2 g/dL (3.2-5.5) 02/17/18 04:25 Globulin 2.6 g/dL (2.1-4.2) 02/17/18 04:25 Albumin/Globulin Ratio 1.2 (1.0-2.2) 02/17/18 04:25 Blood Type A POSITIVE 02/14/18 10:40 Blood Type Recheck A POSITIVE 02/14/18 15:18 - DIAGNOSTIC IMAGING Diagnostic Imaging Results: Final report reviewed Diagnostic Imaging Results Comments: Chest x-ray 02/14/2018 Impression: Endotracheal tube in good position Chest x-ray 02/14/2018 Impression: Nasogastric tube placement as described. Chest x-ray 02/16/2018 Impression: Endotracheal tube now terminating 6 cm above the yolanda No focal opacities evident. No pleural effusion. No pneumothorax. - FOLLOW UP Follow Up: The patient presented with severe angioedema thought to be secondary to lisinopril. Patient's lisinopril was discontinued patient required intubation for airway protection. Patient was intubated via fiberoptic intubation through her nostrils as swelling was too severe in her oropharynx. Airway was e stablished and she remained intubated for 2 days until the angioedema subsided with treatment with steroids, Benadryl and Pepcid. The patient was successfully extubated and had no further issues as her swelling and angioedema resolved. The patient was discharged home in stable condition and was told to discontinue her lisinopril. She was prescribed 2 new antihypertensive medications. She will follow-up with her primary care physician and should get referral for allergy. - TIME SPENT Time Spent in Discharge (Minutes): 45
== END 2018-02-17 09:44 | disposition home or self-care (01) | DRG 916 ==
LOC: ED 10:15 → ICU 12:12 → UNDOADMIN 12:12 → ICU 18:42 → UNDOADMIN 02-16 14:19 → ICU 02-16 14:19 → MS3 02-16 22:46 → ICU 02-16 22:46 → UNDODISIN 02-17 09:44
PROVIDERS: ADMIT Internal Medicine; ATTEND Internal Medicine
PROC: 5A1945Z Respiratory Ventilation, 24-96 Consecutive Hours (ICD-10-PCS; principal; 2018-02-14)
PROC: 30233K1 Transfusion of Nonautologous Frozen Plasma into Peripheral Vein, Percutaneous Approach (ICD-10-PCS; 2018-02-14)
DX: T78.3XXA Angioneurotic edema, initial encounter (principal); T46.4X5A Adverse effect of angiotensin-converting-enzyme inhibitors, initial encounter; I10 Essential (primary) hypertension; F10.10 Alcohol abuse, uncomplicated; J45.909 Unspecified asthma, uncomplicated; Z83.2 Family history of diseases of the blood and blood-forming organs and certain disorders involving the immune mechanism; Z78.1 Physical restraint status; Z72.0 Tobacco use
CPT/HCPCS: 31500; 36415; 36430; 36600; 71045; 80053; 82330; 82803; 83036; 83735; 84100; 85025; 85610; 86900; 86901; 87150; 94002; 94003; 94640; 94770; 99285; 99291